=== PATIENT | male | born 1930 | race Caucasian/White ===

== ENCOUNTER 2018-06-11 08:08 | Emergency (ER) | payer MEDICARE, OTHER ==
[2018-06-11 08:23] VITALS: BP 131/61
--- NOTE | 2018-06-11 08:33 | UC ---
Ear Complaint HPI - HPI Summary HPI Summary: 3 DAYS OF DECREASED HEARING OUT OF RIGHT EAR. NO FEVER OR URI SX. WENT TO [facility] AND WAS TOLD HE HAD CERUMEN BUILD UP BUT THEY WERE UNABLE TO REMOVE IT. - History of Current Complaint Chief Complaint: UCEar Stated Complaint: DIFFICULTY HEARING Time Seen by Provider: 06/11/18 08:26 Hx Obtained From: Patient Onset/Duration: Gradual Onset, Lasting Days, Still Present Severity Initially: Moderate Severity Currently: Moderate Pain Intensity: 0 Pain Scale Used: 0-10 Numeric Aggravating Factors: Nothing Alleviating Factors: Nothing Associated Signs/Symptoms: Positive: Hearing Loss. Negative: Discharge, URI Symptoms - Allergies/Home Medications Allergies/Adverse Reactions: Allergies Allergy/AdvReac Type Severity Reaction Status Date / Time No Known Allergies Allergy Verified 06/11/18 08:23 Home Medications: Home Medications Aspirin 325 mg PO DAILY WITH MEAL 06/11/18 [History Confirmed 06/11/18] Tamsulosin HCl [Flomax] 0.4 mg PO DAILY WITH MEAL 06/11/18 [History Confirmed ] glipiZIDE [Glipizide] 5 mg PO DAILY WITH MEAL 06/11/18 [History Confirmed ] PMH/Surg Hx/FS Hx/Imm Hx Endocrine History: Diabetes Cardiovascular History: Cardiac Disease - Surgical History Surgical History: Yes Surgery Procedure, Year, and Place: stents - Family History Known Family History: Negative: Hypertension - Social History Alcohol Use: Rare Substance Use Type: None Smoking Status (MU): Former Smoker When Did the Patient Quit Smoking/Using Tobacco: 10 years Review of Systems Constitutional: Negative ENT: Other - HEARING LOSS RIGHT EAR Respiratory: Negative Cardiovascular: Negative Gastrointestinal: Negative All Other Systems Reviewed And Are Negative: Yes Physical Exam Triage Information Reviewed: Yes Appearance: Well-Appearing, No Pain Distress, Well-Nourished Vital Signs: Initial Vital Signs Temp 97.9 F 06/11/18 08:17 Pulse 87 06/11/18 08:17 Resp 20 06/11/18 08:17 BP 131/61 06/11/18 08:17 Pulse Ox 96 06/11/18 08:17 Vital Signs Reviewed: Yes Eyes: Positive: Conjunctiva Clear ENT: Positive: TMs normal, Other - BILATERAL EAC WITH CERUMEN IMPACTION Neck: Positive: Supple Respiratory: Positive: No respiratory distress, No accessory muscle use Cardiovascular: Positive: Pulses Normal Abdomen Description: Positive: Soft Musculoskeletal: Positive: No Edema Neurological: Positive: Alert Psychological: Positive: Age Appropriate Behavior Skin: Negative: rashes Ear Complaint Course/Dx - Course Course Of Treatment: BILATERAL EAC IRRIGATED SUCCESSFULLY BY RN. TMs CLEAR. PT STATES HIS HEARING IS RESTORED. - Differential Dx/Diagnosis Provider Diagnoses: BILATERAL CERUMEN IMPACTION Discharge - Sign-Out/Discharge Documenting (check all that apply): Patient Departure All imaging exams completed and their final reports reviewed: No Studies - Discharge Plan Condition: Stable Disposition: HOME Patient Education Materials: Cerumen Impaction (ED) Referrals: Kendall Pastrana MD [Primary Care Provider] - If Needed Additional Instructions: NOW THAT YOUR EAR CANALS ARE CLEAR OF WAX YOU MAY USE A QTIP TO GENTLY AND CAREFULLY CLEAN YOUR EARS ONCE OR TWICE A WEEK TO KEEP WAX FROM BUILDING UP. DO NOT INSERT THE QTIP ANY FURTHER THAN THE DEPTH OF THE [place] [facility]. CONSIDER ENT EVALUATION FOR YOUR HEARING LOSS. [facility] IN [place] EROS [facility]IN AND [address] [facility] [phone] - Billing Disposition and Condition Condition: STABLE Disposition: Home
== END 2018-06-11 09:13 | disposition home or self-care (01) ==
LOC: UCEAST 08:08
DX: H61.23 Impacted cerumen, bilateral (principal); E11.21 Type 2 diabetes mellitus with diabetic nephropathy; Z79.84 Long term (current) use of oral hypoglycemic drugs; I25.10 Atherosclerotic heart disease of native coronary artery without angina pectoris; Z79.82 Long term (current) use of aspirin; Z87.891 Personal history of nicotine dependence
CPT/HCPCS: 99213; G0463

== ENCOUNTER 2018-07-26 11:31 | Inpatient (IN) | payer MEDICARE ==
[2018-07-26] MEDS ORDERED: NS 0.9% 1000 ML* 1,000 ML IV ONE ×2 (12:24→12:35)
--- NOTE | 2018-07-26 12:27 | ED ---
HPI Chest Pain - HPI Summary HPI Summary: An 87 y/o male brought in by [facility] ambulance presents to [facility] with a chief complaint of chest pain since 07/25/18. The patient claims that he is not currently having CP and rates his pain as 0/10 but states that his chest pain was continuous. He was given 4 NTG in the ambulance and took NTG at home prior to the ambulance but does not believe his CP was relieved because of NTG. He also c/o abd pain and productive cough. He has a Hx of HI and has had "4-5 stents". He denies a Hx of DM, HTN or blood clots in lungs or legs. He also suffered from urinary incontinence the night of 06/2918. He reports not wearing O2 at home. - History of Current Complaint Chief Complaint: EDChestPainROMI Time Seen by Provider: 07/26/18 11:58 Hx Obtained From: Patient, Family/Cuff Turner, EMS Onset/Duration: Started Hours Ago, Resolved Timing: Constant Initial Severity: Moderate Current Severity: Mild Pain Intensity: 0 Pain Scale Used: 0-10 Numeric Chest Pain Location: Diffuse Chest Pain Radiates: No - Allergy/Home Medications Allergies/Adverse Reactions: Allergies Allergy/AdvReac Type Severity Reaction Status Date / Time No Known Allergies Allergy Verified 06/11/18 08:23 Home Medications: Home Medications Aspirin [Ecotrin] 325 - 650 mg PO Q4HR PRN 07/26/18 [History Confirmed 07/26/18] Cyanocobalamin TAB* [Vitamin B12 TAB*] 1,000 mcg PO DAILY 07/26/18 [History Confirmed 07/26/18] Folic Acid TAB* [Folvite TAB*] 1 mg PO DAILY 07/26/18 [History Confirmed ] Lisinopril TAB* [Prinivil TAB*] 5 mg PO DAILY 07/26/18 [History Confirmed ] Nitroglycerin TAB 0.4 MG* 0.4 mg SL Q5M PRN 07/26/18 [History Confirmed 07/26/18 ] Pravastatin (NF) [Pravachol (NF)] 40 mg PO BEDTIME 07/26/18 [History Confirmed 07/26/18] Tamsulosin CAP* [Flomax CAP*] 0.8 mg PO DAILY 07/26/18 [History Confirmed ] glipiZIDE TAB* [Glucotrol TAB*] 5 mg PO QAM 07/26/18 [History Confirmed 07/26/18 ] guaiFENesin [Mucus Relief] 400 mg PO QID PRN 07/26/18 [History Confirmed ] PMH/Surg Hx/FS Hx/Imm Hx Endocrine/Hematology History: 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 Denies: Hx Thyroid Disease Cardiovascular History: Denies: Hx Hypertension Respiratory History: Denies: Hx Asthma GI History: Denies: Hx Ulcer - Surgical History Surgery Procedure, Year, and Place: stents Infectious Disease History: No Infectious Disease History: Denies: Hx Hepatitis, Hx Human Immunodeficiency Virus (HIV), Traveled Outside the [place] in Last 30 Days - Family History Known Family History: Negative: Hypertension - Social History Alcohol Use: Rare Substance Use Type: Reports: None Hx Tobacco Use: Yes Smoking Status (MU): Former Smoker Review of Systems Cardiovascular: Negative - blood clots in lungs or legs Positive: Chest Pain Positive: Abdominal Pain Positive: incontinence All Other Systems Reviewed And Are Negative: Yes Physical Exam - Summary Physical Exam Summary: GENERAL: Patient is a well-developed and nourished F who is lying comfortable in the stretcher. Patient is not in any acute respiratory distress. HEAD AND FACE: Normocephalic EYES: PERRLA, EOMI x 2. EARS: Hearing grossly intact. MOUTH: Oropharynx within normal limits. NECK: Supple, trachea is midline, no adenopathy, no JVD, no carotid bruit. CHEST: Symmetric, no tenderness at palpation LUNGS: Wheezing in left anterior, decreased breath sounds in bases bilaterally. CVS: Regular rate and rhythm, S1 and S2 present, no murmurs or gallops appreciated. ABDOMEN: Soft, non-tender. Bowel sounds are normal. No abdominal abnormal pulsations. EXTREMITIES: Full ROM in all major joints, no edema, no cyanosis or clubbing. NEURO: Alert and oriented x 3. No acute neurological deficits. Speech is normal and follows commands. SKIN: Dry and warm Triage Information Reviewed: Yes Vital Signs On Initial Exam: Initial Vitals Temp Pulse Resp BP Pulse Ox 101.6 F 103 17 112/51 96 07/26/18 11:54 07/26/18 11:54 07/26/18 11:54 07/26/18 11:54 11/30/18 11:54 Vital Signs Reviewed: Yes Diagnostics - Vital Signs Vital Signs Temp Pulse Resp BP Pulse Ox 07/26/18 11:54 101.6 F 103 17 112/51 96 - Laboratory Result Diagrams: 07/27/18 06:01 07/27/18 06:01 Lab Statement: Any lab studies that have been ordered have been reviewed, and results considered in the medical decision making process. - Radiology CXR Radiology Interpretation Completed By: Radiologist Summary of Radiographic Findings: LEFT MIDLUNG CONSOLIDATION. RECOMMEND FOLLOW- UP UNTIL RESOLUTION TO EXCLUDE. UNDERLYING PULMONARY PARENCHYMAL PATHOLOGY. IF THE CLINICAL PRESENTATION IS NOT CONSISTENT. WITH PNEUMONIA, CONSIDER FURTHER EVALUATION WITH CT OF THE CHEST. ED physician has reviewed this imaging report. - EKG 12:24 Cardiac Rate: Tachycardia - 101 bpm EKG Rhythm: Sinus Tachycardia Summary of EKG Findings: sinus arrhythmia, some flattening of T-waves in lateral leads. Re-Evaluation - Re-Evaluation First Eval Re-Evaluation Time: 13:35 Change: Unchanged Comment: Convinced patient for admission Chest Pain Course/Dx - Course Course Of Treatment: An 87 y/o male brought in by [facility] ambulance presents to [facility] with a chief complaint of chest pain since 07/25/18. Workup is remarkable. Patient will be admitted. CXR impression: LEFT MIDLUNG CONSOLIDATION. RECOMMEND FOLLOW-UP UNTIL RESOLUTION TO EXCLUDE. UNDERLYING PULMONARY PARENCHYMAL PATHOLOGY. IF THE CLINICAL PRESENTATION IS NOT CONSISTENT. WITH PNEUMONIA, CONSIDER FURTHER EVALUATION WITH CT OF THE CHEST. Dx: PNA, acute kidney injury. Rule out ACS. Case discussed with hospitalist. I discussed results with patient. The patient agrees with this plan. - Diagnoses Provider Diagnoses: PNA (pneumonia), Acute kidney injury - Provider Notifications Discussed Care Of Patient With: Delaney Iverson Time Discussed With Above Provider: 13:45 Instructed by Provider To: Admit As Inpatient Discharge - Sign-Out/Discharge Documenting (check all that apply): Patient Departure - Admit - Discharge Plan Condition: Fair Disposition: ADMITTED TO [facility] - Billing Disposition and Condition Condition: FAIR Disposition: Admitted to [facility] - Attestation Statements Document Initiated by Scribe: Yes Documenting Scribe: Nick Bell Provider For Whom Scribe is Documenting (Include Credential): MD Willow Melloibbradford Attestation: Nick Valdovinos, scribed for Cristopher Ford MD on 07/28/18 at 0156. Scribe Documentation Reviewed: Yes Provider Attestation: The documentation as recorded by the scribe, Nick Bell accurately reflects the service I personally performed and the decisions made by me, Susanne Ford MD Status of Scribe Document: Viewed
[2018-07-26] MEDS ORDERED: Acetaminophen TAB* 325 MG PO ONE (12:34)
[2018-07-26] MEDS ORDERED: cefTRIAXone(*) 1 GM in NS 0.9% 50 ML* 50 ML IVPB ONE (12:56)
[2018-07-26] MEDS ORDERED: Azithromycin IV(*) 500 MG in NS 0.9% 250 ML* 250 ML IVPB ONE (12:56)
[2018-07-26 13:05] LABS: ABS Basophils 0 10^3/ul (0-0.2); ABS Eosinophils 0 10^3/ul (0-0.6); ABS Lymphocytes 0.9 10^3/ul (1.0-4.8); ABS Monocytes 1.2 10^3/ul (0-0.8); ABS Neutrophils 11.1 10^3/ul (1.5-7.7); ABS Nucleated RBC 0 10^3/ul; Eosinophil % 0 %; Hematocrit 35 % (42-52); Hemoglobin 11.7 g/dl (14.0-18.0); Lymphocyte % 6.9 %; Mean Corpuscular HGB Conc 34 g/dl (31-36); Mean Corpuscular Hemoglobin 31 pg (27-31); Mean Corpuscular Volume 92 fL (80-94); Mean Platelet Volume 6.9 fL (7.4-10.4); Nucleated Red Blood Cells % 0; Platelet Count 288 10^3/ul (150-450); Red Blood Count 3.76 10^6/ul (4.00-5.40); Red Cell Distribution Width 14 % (10.5-15); White Blood Count 13.3 10^3/ul (3.5-10.8)
[2018-07-26 13:16] LABS: INR 1.16 (0.77-1.02)
[2018-07-26 13:22] LABS: EGFR Non-African American 33.2 (>60)
[2018-07-26] MEDS ORDERED: Magnesium Sulfate 2 GM IV* 2 GM/50 ML BAG IVPB ONE (14:32)
[2018-07-26] MEDS ORDERED: Albuterol 2.5 MG/3 ML NEB.SOL* (0.083%) INH PRN (15:01)
[2018-07-26] MEDS ORDERED: Acetaminophen TAB* 325 MG PO PRN (15:01)
[2018-07-26] MEDS ORDERED: Al Hydrox/Mg Hydrox/Simet LIQ* 30 ML UDC PO PRN (15:01)
[2018-07-26] MEDS ORDERED: guaiFENesin LIQ* 100 MG/5 ML UDC PO PRN (15:06)
[2018-07-26] MEDS ORDERED: Nitroglycerin TAB 0.4 MG* 0.4 MG TAB SL PRN (15:06)
[2018-07-26] MEDS ORDERED: Dextrose 50% Syringe 50 ML* 25 GM/50 ML SYRINGE IV PUSH PRN (15:53)
[2018-07-26] MEDS: Insulin LISPRO* 1 UNITS UNIT SUBCUT SCH (18:09)
[2018-07-26] MEDS ORDERED: Furosemide IV* 10 MG/ML 2 ML VIAL (20 MG) IV STA (18:16)
--- NOTE | 2018-07-26 20:43 | HP ---
CC: Dr. Pastrana.* HISTORY AND PHYSICAL: DATE OF ADMISSION: 07/26/18 PROVIDER: Zehra Johnson NP PRIMARY CARE PROVIDER: Dr. Kendall Pastrana. ATTENDING PHYSICIAN WHILE IN THE HOSPITAL: Dr. Delaney Iverson * (dictated by Zehra Johnson NP). CHIEF COMPLAINT: 1. Chest pain. 2. Fever. HISTORY OF PRESENT ILLNESS: Mr. Whalen is an 87-year-old male with a past medical history significant for diabetes, hypertension, hyperlipidemia, NJ with cardiac stent placement, enlarged prostate, who presented to the emergency room with complaints of left-sided chest pain that started yesterday. The patient reports that he had chest pain all night and continued today, so he presented to the emergency room for further evaluation. The patient also reports that he has had fevers yesterday, but did not check his temperature. He does report that he has a chronic cough and has been taking guaifenesin for his cough. He reports that he has had this cough for some time. He states this morning the chest pain remained on the left side. It was sharp. He denied any nausea, vomiting, or diaphoresis with the chest pain. He does report a decreased appetite x2 days. He says since being in the emergency room the chest pain has resolved. He also reports that he had some abdominal pain this morning as well in the mid abdomen that has also resolved. He does report urinary incontinence and frequency, but denies any burning with urination or hematuria. He denies any swelling. Denies any focal weakness or sensory loss. Denies any dysphagia. Denies any arthralgias or myalgias. No rashes or lesions. Denies any anxiety or depression. While in the emergency room, the patient had routine lab work drawn. He had an elevated troponin at 0.12. He was found to have leukocytosis with WBCs of 13.3. He had a chest x-ray, left mid lung consolidation, which is felt to be pneumonia. Given his fever, leukocytosis, tachycardia, hypotension, we were asked to see and evaluate the patient for admission. PAST MEDICAL HISTORY: Significant for: 1. Diabetes. 2. Hypertension. 3. Hyperlipidemia. 4. History of an NJ with 4 cardiac stent placement. 5. Enlarged prostate. PAST SURGICAL HISTORY: Cardiac stents. HOME MEDICATIONS: 1. Nitroglycerin 0.4 mg sublingual q.5 minutes as needed. 2. Folic acid 1 mg p.o. daily. 3. Pravastatin 40 mg p.o. at bedtime. 4. Vitamin B12 1000 mcg p.o. daily. 5. Glipizide 5 mg p.o. q.a.m. 6. Tamsulosin 0.8 mg p.o. daily. 7. Aspirin 325 to 650 mg p.o. q.4 hours as needed. 8. Guaifenesin 400 mg p.o. 4 times daily p.r.n. cough. 9. Lisinopril 5 mg p.o. daily. ALLERGIES: No known drug allergies. FAMILY HISTORY: No reported history of coronary artery disease or diabetes within the family. He had 2 brothers with cancer, unknown type. SOCIAL HISTORY: The patient reports that he quit smoking cigarettes approximately 18 years ago. Does report occasional alcohol use. Denies any illicit drug use. He is retired. He lives alone. He is . Surrogate decision maker in the event he is unable to make his own decisions is his son, Hari. His number is [phone]. The patient wishes to be a DNR/DNI. The MOLST form has been completed and placed on the chart. REVIEW OF SYSTEMS: The patient is febrile with a T-max of 101.6. He does report chest pain that was left-sided that started yesterday, has now resolved since being in the emergency room. He denies any edema. Does report decreased appetite x2 days. Reports a chronic cough, no worse than normal. Denies any hemoptysis. Denies shortness of breath, nocturnal dyspnea, or orthopnea. Denies any nausea, vomiting, or diarrhea. He did report some mid abdominal pain that since has resolved. Denies any gross hematuria or dysuria. No focal weakness or sensory loss. Denies any visual complaints, dysphagia. Denies any arthralgias or myalgias. No rashes or lesions. No psychosis or anxiety. The patient does report that he was incontinent of urine and has increased urinary frequency. PHYSICAL EXAMINATION GENERAL: At this time, Mr. Whalen is sitting on the stretcher in the emergency room. He is alert and oriented. He does not appear to be in any acute distress. VITAL SIGNS: Temperature is 99.9, heart rate is 95, respirations are 20, O2 saturation is 93% on 2 L, blood pressure 107/49. HEENT: Head is atraumatic, normocephalic. Eyes: EOMs are intact. Sclerae anicteric and not pale. Oral mucosa appeared to be moist. NECK: Supple. LUNGS: Diminished bilaterally. No wheezes. A few scattered rhonchi. CARDIAC: S1, S2. Regular rate and rhythm. No murmurs, rubs, or gallops. ABDOMEN: Soft and nontender. Bowel sounds are present x4. EXTREMITIES: Pulses are +2 bilaterally. There is no edema. He is able to move all 4 extremities with 5/5 strength. NEUROLOGIC: He is awake, alert, and oriented x3. Speech is clear. Thought process is intact. There are no gross focal deficits. SKIN: Intact. DIAGNOSTIC STUDIES/LAB DATA: WBCs were 13.3, RBCs 3.76, hemoglobin 11.7, hematocrit 35, platelet count 288, neutrophils were 83.7, lymphs were 6.9, absolute neutrophils were 11.1. INR was 1.16, APTT was 30.4. Sodium 135, potassium 4.7, chloride 103, carbon dioxide was 26, anion gap was 6, BUN was 32 , creatinine 1.93, glucose was 183, lactic acid was 1.1, calcium 9.4, magnesium 1.7. T-bili 1.10, ASTs were 12, ALTs were 11, alkaline phosphatase 101. Troponin was 0.12, BNP was 385. He had a flu A and B, which were negative. He had a chest x-ray. Radiologist's impression: Left mid lung consolidation, recommend followup until resolution to exclude underlying pulmonary parenchymal pathology. If the clinical presentation is not consistent pneumonia, consider further evaluation with a CT of the chest. He had an EKG that showed sinus rhythm with PACs at a rate of 101. ASSESSMENT AND PLAN: Mr. Whalen is an 87-year-old male, who presented to the emergency room today with complaints of left-sided chest pain. He was evaluated and found to have pneumonia, meeting sepsis criteria. We were asked to evaluate him for admission. He will be admitted inpatient for: 1. Sepsis. He meets sepsis criteria with fever, tachycardia, hypotension, leukocytosis, acute kidney injury with known source of infection, pneumonia. He did receive 2 L of IV fluids in the emergency room. He does have an elevated BNP. He did receive azithromycin and ceftriaxone in the emergency room. His blood cultures are pending. UA has been ordered and pending. A urine for Legionella and S. pneumoniae is pending. His lactic acid was negative. We will continue to monitor him and treat with IV antibiotics. 2. Pneumonia. I will continue azithromycin and ceftriaxone. We will provide oxygen support as needed. Blood cultures are currently pending. Urine for Legionella and Strep pneumoniae currently pending. A sputum culture has been ordered. 3. Elevated troponin. The patient did have chest pain. This started last p.m. It has since subsided with IV hydration and aspirin and 1 nitro. We will continue to trend his troponins. His initial troponin was 0.12. The patient did receive aspirin 324 in the ambulance. He is already on statin therapy. We will continue his statin therapy. The patient at this time does not want any further evaluation of his elevated troponin. He does not want a stress test if that would be needed. I suspect that his elevation in troponin could be related to demand ischemia given his underlying pneumonia, but given his history of coronary artery disease with stent placement, acute coronary syndrome is also within the differential. He does have flat T waves in v5 and v6 and q waves on his current EKG which showed sinus rhythm with PACs. There is no old EKG to compare, will repeat Ekg in the AM or with further episodes of chest pain. I will hold on beta satya at this time do to sepsis. Will continue to monitor on telemetry. 4. Acute kidney injury. The patient has an elevated BUN and creatinine at 32 and 1.93. I suspect this could be related to dehydration as the patient has had poor p.o. intake for 2 days. He received IV hydration in the emergency room. We will repeat a BMP in the a.m. and continue to monitor this. 5. Hypomagnesemia. The patient's magnesium was 1.7 on arrival. I ordered magnesium 2 g IV. We will repeat a mag level in the a.m. 6. Hypertension. The patient is currently on lisinopril. I am going to hold his lisinopril due to his acute kidney injury. We will monitor his blood pressure and treat as needed. 7. Hyperlipidemia. We will continue on his statin therapy as previous prescribed. 8. Diabetes. I will do Accu-Cheks a.c. with lispro sliding scale. I am going to hold his glipizide at this time. 9. FEN: He can have heart-healthy, decaf okay diet. 10. Code status: He is a DNR/DNI. MOLST completed 11. DVT prophylaxis: I will place him on heparin subcu. 12. Disposition: He will be placed inpatient on telemetry. TIME SPENT: Time spent on this admission was greater than 60 minutes, half that time was spent feuv-in-erao with the patient and his family obtaining my history and physical, the other half of the time was spent going over my plan of care and implementing my plan of care. I have discussed this with my attending, Dr. Delaney Iverson, and she is in agreement with my plan. ZEHRA JOHNSON, VISION CARE ASSOCIATE [id number]/CPS #: [id number] PEPPER
[2018-07-26] MEDS: Atorvastatin* 10 MG TAB PO SCH (21:05)
[2018-07-26] MEDS: Heparin VIAL(*) 5000 UNITS/ML VIAL (FIVE THOUSAND) SUBCUT SCH (21:05)
[2018-07-27 02:13] LABS: Urine Appearance Cloudy; Urine Blood 2+ (Negative); Urine Color Yellow; Urine Ketones Trace (Negative); Urine Protein Negative (Negative); Urine Red Blood Cell 2+(6-10/hpf) (Absent); Urine Specific Gravity 1.014 (1.010-1.030); Urine Urobilinogen Negative (Negative); Urine White Blood Cell 2+(11-20/hpf) (Absent)
[2018-07-27] MEDS: Heparin VIAL(*) 5000 UNITS/ML VIAL (FIVE THOUSAND) SUBCUT SCH ×3 (05:50→20:50)
[2018-07-27 06:15] LABS: ABS Basophils 0 10^3/ul (0-0.2); ABS Eosinophils 0 10^3/ul (0-0.6); ABS Monocytes 1.1 10^3/ul (0-0.8); ABS Neutrophils 10.3 10^3/ul (1.5-7.7); ABS Nucleated RBC 0 10^3/ul; Eosinophil % 0 %; Hematocrit 33 % (42-52); Hemoglobin 10.9 g/dl (14.0-18.0); Lymphocyte % 8.3 %; Mean Corpuscular HGB Conc 33 g/dl (31-36); Mean Corpuscular Hemoglobin 31 pg (27-31); Mean Corpuscular Volume 92 fL (80-94); Mean Platelet Volume 6.8 fL (7.4-10.4); Nucleated Red Blood Cells % 0.3; Platelet Count 282 10^3/ul (150-450); Red Blood Count 3.56 10^6/ul (4.00-5.40); Red Cell Distribution Width 14 % (10.5-15); White Blood Count 12.6 10^3/ul (3.5-10.8)
[2018-07-27 06:35] LABS: EGFR Non-African American 36.9 (>60)
[2018-07-27] MEDS: Insulin LISPRO* 1 UNITS UNIT SUBCUT SCH ×3 (09:09→17:25)
[2018-07-27] MEDS: Aspirin EC TAB* 81 MG TAB.EC PO SCH (09:37)
[2018-07-27] MEDS: Tamsulosin CAP* 0.4 MG PO SCH (09:37)
[2018-07-27] MEDS: Folic Acid TAB* 1 MG PO SCH (09:38)
[2018-07-27] MEDS: Cyanocobalamin TAB* 500 MCG PO SCH (09:38)
[2018-07-27] MEDS: cefTRIAXone(*) 1 GM in NS 0.9% 50 ML* 50 ML IVPB SCH (14:59)
[2018-07-27] MEDS ORDERED: Azithromycin IV(*) 500 MG in NS 0.9% 250 ML* 250 ML IVPB SCH (16:00)
--- NOTE | 2018-07-27 17:08 | PN ---
Subjective Date of Service: 07/27/18 Interval History: Pt attest to chronic PATEL and chest pains likely angina related but says he is 87 yo and still wants to limit/refuse any additional cardiac workup such as a stress test. 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 Says an exercise stress test after his [address] Parekh was somewhat traumatic. Even explaining nuclear stress or ECHO would be less invasive he refuses. Walks 200 yds to his mail box and back without having to stop. Sees Dr. Pastrana every 6 months. Thinks he may have mentioned some degree of kidney disease. Still on 4L Tmax 100.0 this AM Sees no specialist Objective Active Medications: Acetaminophen (Tylenol Tab*) 650 mg PO Q4H PRN PRN Reason: FEVER/PAIN Al Hydrox/Mg Hydrox/Simethicone (Maalox Plus*) 30 ml PO Q6H PRN PRN Reason: INDIGESTION Albuterol (Ventolin 2.5 Mg/3 Ml Neb.Юлия*) 2.5 mg INH [id number] AWAKE PRN PRN Reason: sob/wheezing Aspirin (Aspirin Ec Tab*) 81 mg PO DAILY [facility] Last Admin: 07/27/18 09:37 Dose: 81 mg Atorvastatin Calcium (Lipitor*) 10 mg PO BEDTIME [facility]; Protocol Last Admin: 07/26/18 21:05 Dose: 10 mg Cyanocobalamin (Vitamin B12 Tab*) 1,000 mcg PO DAILY [facility] Last Admin: 07/27/18 09:38 Dose: 1,000 mcg Dextrose (D50w Syringe 50 Ml*) 12.5 gm IV PUSH .FOR FS < 60 - SS PRN PRN Reason: FS < 60 Folic Acid (Folvite Tab*) 1 mg PO DAILY [facility] Last Admin: 07/27/18 09:38 Dose: 1 mg Guaifenesin (Robitussin*) 20 ml PO QID PRN PRN Reason: CONGESTION Heparin Sodium (Porcine) (Heparin Vial(*)) 5,000 units SUBCUT Q8HR [facility] Last Admin: 07/27/18 14:59 Dose: 5,000 units Ceftriaxone Sodium 1 gm/ (Sodium Chloride) 50 mls @ 200 mls/hr IVPB Q24H [facility] Last Admin: 07/27/18 14:59 Dose: 200 mls/hr Azithromycin 500 mg/ Sodium (Chloride) 250 mls @ 250 mls/hr IVPB Q24H [facility] Last Admin: 07/27/18 16:27 Dose: 250 mls/hr Insulin Human Lispro (Humalog*) 0 units SUBCUT AC [facility]; Protocol Last Admin: 07/27/18 14:13 Dose: Not Given Nitroglycerin (Nitroglycerin Tab 0.4 Mg*) 0.4 mg SL Q5M PRN PRN Reason: PAIN - CHEST Tamsulosin HCl (Flomax Cap*) 0.8 mg PO DAILY [facility] Last Admin: 07/27/18 09:37 Dose: 0.8 mg Vital Signs - 8 hr 07/27/18 07/27/18 11:21 16:13 Temperature 100.0 F 98.6 F Pulse Rate 105 104 Respiratory 22 20 Rate Blood Pressure 133/70 122/49 (mmHg) O2 Sat by Pulse 95 100 Oximetry Oxygen Devices in Use Now: Nasal Cannula Appearance: NAD Eyes: No Scleral Icterus, PERRLA Ears/Nose/Mouth/Throat: NL Teeth, Lips, Gums, Mucous Membranes Moist Neck: NL Appearance and Movements; NL JVP Respiratory: - - rhonchi in left mid lung field, no wheezing or rales. Cardiovascular: - - holosystolic murmur 2/6 loudest at LLSB, regular rate, no rubs or gallops Extremities: No Edema Skin: No Rash or Ulcers, No Nodules or Sclerosis Neurological: Alert and Oriented x 3, NL Sensation, NL Muscle Strength and Tone Nutrition: Taking PO's Result Diagrams: 07/27/18 06:01 07/27/18 06:01 Additional Lab and Data: Laboratory Results - last 24 hr 07/26/18 07/27/18 07/27/18 18:50 01:55 06:01 WBC 12.6 H RBC 3.56 L Hgb 10.9 L Hct 33 L MCV 92 MCH 31 MCHC 33 RDW 14 Plt Count 282 MPV 6.8 L Neut % (Auto) 82.2 Lymph % (Auto) 8.3 Richardson % (Auto) 9.1 Eos % (Auto) 0 Baso % (Auto) 0.4 Absolute Neuts (auto) 10.3 H Absolute Lymphs (auto) 1.0 Absolute Monos (auto) 1.1 H Absolute Eos (auto) 0 Absolute Basos (auto) 0 Absolute Nucleated RBC 0 Nucleated RBC % 0.3 Sodium Potassium Chloride Carbon Dioxide Anion Gap BUN Creatinine Est GFR ( Amer) Est GFR (Non-Af Amer) BUN/Creatinine Ratio Glucose POC Glucose (mg/dL) Calcium Magnesium Troponin I 0.09 H* Triglycerides Cholesterol LDL Cholesterol HDL Cholesterol Urine Color Yellow Urine Appearance Cloudy Urine pH 5.0 Ur Specific [place] 1.014 Urine Protein Negative Urine Ketones Trace A Urine Blood 2+ A Urine Nitrate Negative Urine Bilirubin Negative Urine Urobilinogen Negative Ur Leukocyte Esterase Trace A Urine WBC (Auto) 2+(11-20/hpf) A Urine RBC (Auto) 2+(6-10/hpf) A Ur Squamous Epith Cells Present A Urine Bacteria Absent Urine Glucose Negative Urine Ascorbic Acid * A 07/27/18 07/27/18 07/27/18 06:01 07:28 11:35 WBC RBC Hgb Hct MCV MCH MCHC RDW Plt Count MPV Neut % (Auto) Lymph % (Auto) Richardson % (Auto) Eos % (Auto) Baso % (Auto) Absolute Neuts (auto) Absolute Lymphs (auto) Absolute Monos (auto) Absolute Eos (auto) Absolute Basos (auto) Absolute Nucleated RBC Nucleated RBC % Sodium 135 Potassium 4.7 Chloride 104 Carbon Dioxide 23 Anion Gap 8 BUN 33 H Creatinine 1.76 H Est GFR ( Amer) 44.6 Est GFR (Non-Af Amer) 36.9 BUN/Creatinine Ratio 18.8 Glucose 179 H POC Glucose (mg/dL) 172 H 202 H Calcium 8.8 Magnesium 2.0 Troponin I Triglycerides 138 Cholesterol 132 LDL Cholesterol 71 HDL Cholesterol 33.4 Urine Color Urine Appearance Urine pH Ur Specific [place] Urine Protein Urine Ketones Urine Blood Urine Nitrate Urine Bilirubin Urine Urobilinogen Ur Leukocyte Esterase Urine WBC (Auto) Urine RBC (Auto) Ur Squamous Epith Cells Urine Bacteria Urine Glucose Urine Ascorbic Acid 07/27/18 16:32 WBC RBC Hgb Hct MCV MCH MCHC RDW Plt Count MPV Neut % (Auto) Lymph % (Auto) Richardson % (Auto) Eos % (Auto) Baso % (Auto) Absolute Neuts (auto) Absolute Lymphs (auto) Absolute Monos (auto) Absolute Eos (auto) Absolute Basos (auto) Absolute Nucleated RBC Nucleated RBC % Sodium Potassium Chloride Carbon Dioxide Anion Gap BUN Creatinine Est GFR ( Amer) Est GFR (Non-Af Amer) BUN/Creatinine Ratio Glucose POC Glucose (mg/dL) 205 H Calcium Magnesium Troponin I Triglycerides Cholesterol LDL Cholesterol HDL Cholesterol Urine Color Urine Appearance Urine pH Ur Specific [place] Urine Protein Urine Ketones Urine Blood Urine Nitrate Urine Bilirubin Urine Urobilinogen Ur Leukocyte Esterase Urine WBC (Auto) Urine RBC (Auto) Ur Squamous Epith Cells Urine Bacteria Urine Glucose Urine Ascorbic Acid Microbiology and Other Data: Microbiology 07/26/18 12:45 Blood Venous Aerobic Blood Culture - Preliminary No Growth Day 1 07/26/18 12:45 Blood Venous Anaerobic Blood Culture - Preliminary No Growth Day 1 07/27/18 01:55 Urine Legionella Urinary Antigen - Final Negative Legionella Antigen 07/27/18 01:55 Urine Streptococcus pneumoniae Ag Screen - Final Negative S. pneumo Antigen 07/26/18 13:03 Nasal Influenza Types A,B Antigen - Final Specimen received for Influenza A/B Molecular testing Assess/Plan/Problems-Billing Assessment: 87 yo male PMH CAD with 4 stents with 2002 [facility] documenting subtotal LAD occlusion, NIDDM, HTHN, HLD with chronic PATEL and exertional chest pain but refusing additional cardiac workup presenting with left chest pain and suprapubic pain. left midlung consolidation, fever, leukocytosis, tachycardia, tachypnea suspicious for sepsis secondary to pneumonia. Acute hypoxic respiratory failure. CFTX, azithromycin. - Patient Problems (1) Sepsis Current Visit: Yes Status: Acute Comment: fever, tachycardia, leukocytosis, tachpynea, acute hypoxic respiratory failure secondary to left middle lobe pneumonia. fever curve, HR, RR improving, still with significant oxygen requirement. (2) Pneumonia Current Visit: Yes Status: Acute Code(s): J18.9 - PNEUMONIA, UNSPECIFIED ORGANISM SNOMED Code(s): 785093698 Comment: Continue ceftriaxone, azithromycin strep pna and legionella urine Ag negative. f/u Bcx, sputm cx flu negative. (3) CAD (coronary artery disease) Current Visit: Yes Status: Acute Code(s): I25.10 - ATHSCL HEART DISEASE OF [place] CORONARY ARTERY W/O ANG PCTRS SNOMED Code(s): 74059146 Comment: reported 4 stents continue nitro SL prn. he is not on a BB at home. will start metoprolol 12.5mg q12 for now given resolving sepsis former smoker (quit 18 years ago) refusing nuclear stress or ECHO. EKG with inferior Q wave in III and v5 ST depressions and TWI II (4) HLD (hyperlipidemia) Current Visit: Yes Status: Acute Code(s): E78.5 - HYPERLIPIDEMIA, UNSPECIFIED SNOMED Code(s): 63257534 Comment: Continue 10mg atorvastatin. (home is pravastatin 40mg) HDL 71, HDL 33 (5) Kidney disease Current Visit: Yes Status: Acute Comment: Unknown baseline, but likely degree of chronic kidney disease. 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 Plan to obtain records from Dr. Pastrana if still here on Sunday. Status and Disposition: medicine inpatient.
[2018-07-27] MEDS ORDERED: Furosemide IV* 10 MG/ML 2 ML VIAL (20 MG) IV ONE (19:04)
[2018-07-27] MEDS: Metoprolol Tartrate TAB* 25 MG PO SCH (20:50)
[2018-07-27] MEDS: Atorvastatin* 10 MG TAB PO SCH (20:50)
[2018-07-28 05:48] LABS: ABS Basophils 0 10^3/ul (0-0.2); ABS Eosinophils 0 10^3/ul (0-0.6); ABS Lymphocytes 0.7 10^3/ul (1.0-4.8); ABS Monocytes 1.1 10^3/ul (0-0.8); ABS Neutrophils 8.1 10^3/ul (1.5-7.7); ABS Nucleated RBC 0 10^3/ul; Eosinophil % 0.1 %; Hematocrit 33 % (42-52); Hemoglobin 11.1 g/dl (14.0-18.0); Lymphocyte % 7.2 %; Mean Corpuscular HGB Conc 34 g/dl (31-36); Mean Corpuscular Hemoglobin 31 pg (27-31); Mean Corpuscular Volume 92 fL (80-94); Mean Platelet Volume 6.7 fL (7.4-10.4); Nucleated Red Blood Cells % 0.1; Platelet Count 338 10^3/ul (150-450); Red Blood Count 3.61 10^6/ul (4.00-5.40); Red Cell Distribution Width 14 % (10.5-15)
[2018-07-28] MEDS: Heparin VIAL(*) 5000 UNITS/ML VIAL (FIVE THOUSAND) SUBCUT SCH ×3 (05:59→21:12)
[2018-07-28 06:08] LABS: EGFR Non-African American 39.2 (>60)
[2018-07-28] MEDS: Cyanocobalamin TAB* 500 MCG PO SCH (08:41)
[2018-07-28] MEDS: Insulin LISPRO* 1 UNITS UNIT SUBCUT SCH ×3 (08:41→17:15)
[2018-07-28] MEDS: Metoprolol Tartrate TAB* 25 MG PO SCH ×2 (08:41→21:09)
[2018-07-28] MEDS: Aspirin EC TAB* 81 MG TAB.EC PO SCH (08:42)
[2018-07-28] MEDS: Tamsulosin CAP* 0.4 MG PO SCH (08:42)
[2018-07-28] MEDS: Folic Acid TAB* 1 MG PO SCH (08:42)
[2018-07-28] MEDS ORDERED: Furosemide TAB* 40 MG PO SCH (09:00)
--- NOTE | 2018-07-28 10:23 | PN ---
Subjective Date of Service: 07/28/18 Interval History: Family at bedside, questions answered. Currently on 5L, 98% coughing still, unable to produce sputum feeling more comfortable than last night when had episode of respiratory distress, got another 20mg IV lasix. weight decreasing. ECHO okay per pt and family. Objective Active Medications: Acetaminophen (Tylenol Tab*) 650 mg PO Q4H PRN PRN Reason: FEVER/PAIN Al Hydrox/Mg Hydrox/Simethicone (Maalox Plus*) 30 ml PO Q6H PRN PRN Reason: INDIGESTION Albuterol (Ventolin 2.5 Mg/3 Ml Neb.Юлия*) 2.5 mg INH [id number] AWAKE PRN PRN Reason: sob/wheezing Aspirin (Aspirin Ec Tab*) 81 mg PO DAILY [facility] Last Admin: 07/28/18 08:42 Dose: 81 mg Atorvastatin Calcium (Lipitor*) 10 mg PO BEDTIME [facility]; Protocol Last Admin: 07/27/18 20:50 Dose: 10 mg Azithromycin (Zithromax Tab*) 500 mg PO ONCE ONE Stop: 07/28/18 17:01 Cyanocobalamin (Vitamin B12 Tab*) 1,000 mcg PO DAILY [facility] Last Admin: 07/28/18 08:41 Dose: 1,000 mcg Dextrose (D50w Syringe 50 Ml*) 12.5 gm IV PUSH .FOR FS < 60 - SS PRN PRN Reason: FS < 60 Folic Acid (Folvite Tab*) 1 mg PO DAILY [facility] Last Admin: 07/28/18 08:42 Dose: 1 mg Furosemide (Lasix Tab*) 40 mg PO DAILY [facility] Last Admin: 07/28/18 08:42 Dose: 40 mg Guaifenesin (Robitussin*) 20 ml PO QID PRN PRN Reason: CONGESTION Heparin Sodium (Porcine) (Heparin Vial(*)) 5,000 units SUBCUT Q8HR [facility] Last Admin: 07/28/18 05:59 Dose: 5,000 units Ceftriaxone Sodium 1 gm/ (Sodium Chloride) 50 mls @ 200 mls/hr IVPB Q24H [facility] Last Admin: 07/27/18 14:59 Dose: 200 mls/hr Insulin Human Lispro (Humalog*) 0 units SUBCUT AC [facility]; Protocol Last Admin: 07/28/18 08:41 Dose: 2 units Metoprolol Tartrate (Lopressor Tab*) 12.5 mg PO Q12HR [facility] Last Admin: 07/28/18 08:41 Dose: 12.5 mg Nitroglycerin (Nitroglycerin Tab 0.4 Mg*) 0.4 mg SL Q5M PRN PRN Reason: PAIN - CHEST Tamsulosin HCl (Flomax Cap*) 0.8 mg PO DAILY [facility] Last Admin: 07/28/18 08:42 Dose: 0.8 mg Vital Signs - 8 hr 07/28/18 07/28/18 07/28/18 03:28 03:30 07:32 Temperature 98.7 F Pulse Rate 101 Respiratory 20 20 20 Rate Blood Pressure 111/58 (mmHg) O2 Sat by Pulse 98 Oximetry 07/28/18 08:20 Temperature 99.0 F Pulse Rate 99 Respiratory 20 Rate Blood Pressure 110/46 (mmHg) O2 Sat by Pulse 96 Oximetry Oxygen Devices in Use Now: Nasal Cannula Appearance: NAD Eyes: No Scleral Icterus Ears/Nose/Mouth/Throat: NL Teeth, Lips, Gums Neck: NL Appearance and Movements; NL JVP Respiratory: Symmetrical Chest Expansion and Respiratory Effort - rhonchorous on left, decreased at bases. no wheezing. Cardiovascular: NL Sounds; No Murmurs; No JVD, RRR Abdominal: NL Sounds; No Tenderness; No Distention Extremities: - - trace edema Skin: No Rash or Ulcers Neurological: Alert and Oriented x 3, NL Sensation, NL Muscle Strength and Tone Nutrition: Taking PO's Result Diagrams: 07/28/18 05:26 07/28/18 05:26 Additional Lab and Data: Laboratory Results - last 24 hr 07/28/18 07/28/18 07/28/18 05:26 05:26 05:26 WBC 10.0 RBC 3.61 L Hgb 11.1 L Hct 33 L MCV 92 MCH 31 MCHC 34 RDW 14 Plt Count 338 MPV 6.7 L Neut % (Auto) 81.2 Lymph % (Auto) 7.2 [place] % (Auto) 11.3 Eos % (Auto) 0.1 Baso % (Auto) 0.2 Absolute Neuts (auto) 8.1 H Absolute Lymphs (auto) 0.7 L Absolute Monos (auto) 1.1 H Absolute Eos (auto) 0 Absolute Basos (auto) 0 Absolute Nucleated RBC 0 Nucleated RBC % 0.1 Sodium 137 Potassium 4.8 Chloride 103 Carbon Dioxide 25 Anion Gap 9 BUN 34 H Creatinine 1.67 H Est GFR ( Amer) 47.4 Est GFR (Non-Af Amer) 39.2 BUN/Creatinine Ratio 20.4 H Glucose 220 H POC Glucose (mg/dL) Hemoglobin A1c 7.1 H Calcium 8.8 07/28/18 07/28/18 07/28/18 07:12 11:09 16:14 WBC RBC Hgb Hct MCV MCH MCHC RDW Plt Count MPV Neut % (Auto) Lymph % (Auto) [place] % (Auto) Eos % (Auto) Baso % (Auto) Absolute Neuts (auto) Absolute Lymphs (auto) Absolute Monos (auto) Absolute Eos (auto) Absolute Basos (auto) Absolute Nucleated RBC Nucleated RBC % Sodium Potassium Chloride Carbon Dioxide Anion Gap BUN Creatinine Est GFR ( Amer) Est GFR (Non-Af Amer) BUN/Creatinine Ratio Glucose POC Glucose (mg/dL) 222 H 279 H 282 H Hemoglobin A1c Calcium Microbiology and Other Data: Microbiology 07/26/18 12:45 Blood Venous Aerobic Blood Culture - Preliminary No Growth Day 2 07/26/18 12:45 Blood Venous Anaerobic Blood Culture - Preliminary No Growth Day 2 07/27/18 01:55 Urine Urine Culture - Final 07/27/18 01:55 Urine Legionella Urinary Antigen - Final Negative Legionella Antigen 07/27/18 01:55 Urine Streptococcus pneumoniae Ag Screen - Final Negative S. pneumo Antigen 07/26/18 13:03 Nasal Influenza Types A,B Antigen - Final Specimen received for Influenza A/B Molecular testing Assess/Plan/Problems-Billing Assessment: 87 yo male PMH CAD with 4 stents with 2002 [facility] documenting subtotal LAD occlusion, NIDDM, HTHN, HLD with chronic PATEL and exertional chest pain but refusing additional cardiac workup presenting with left chest pain and suprapubic pain. left midlung consolidation, fever, leukocytosis, tachycardia, tachypnea suspicious for sepsis secondary to pneumonia. Acute hypoxic respiratory failure. CFTX, azithromycin. ECHO with evidence of multiple regional wall motion abnormalities and EF 30%. Still not wanting cardiac intervention though Full Code and would want return to the hospital if gets SOB again. - Patient Problems (1) Sepsis Current Visit: Yes Status: Acute Comment: fever, tachycardia, leukocytosis, tachpynea, acute hypoxic respiratory failure secondary to left middle lobe pneumonia. fever curve, HR, RR improving, still with significant oxygen requirement. (2) Pneumonia Current Visit: Yes Status: Acute Code(s): J18.9 - PNEUMONIA, UNSPECIFIED ORGANISM SNOMED Code(s): 328426265 Comment: Continue ceftriaxone, azithromycin strep pna and legionella urine Ag negative. f/u Bcx NGTD f/u sputum cx(has not been able to provide) flu negative. 2 view CXR with continue left lung consolidation, described as more pleural based. He is former smoker and will need continued imaging as outpatient to rule out parenchymal pathology. (3) CAD (coronary artery disease) Current Visit: Yes Status: Acute Code(s): I25.10 - ATHSCL HEART DISEASE OF [place] CORONARY ARTERY W/O ANG PCTRS SNOMED Code(s): 33048430 Comment: reported 4 stents (2001) continue nitro SL prn. continue (new) metoprolol 12.5mg q12 for now given resolving sepsis. titrate up as able former smoker (quit 18 years ago) refusing nuclear stress or LHC. EKG with inferior Q wave in III and anterior lateral ST depressions and TWI II. ECHO with multiple regional wall motion abnormalities. Will attempt medical management. (4) HLD (hyperlipidemia) Current Visit: Yes Status: Acute Code(s): E78.5 - HYPERLIPIDEMIA, UNSPECIFIED SNOMED Code(s): 85716150 Comment: Will increase to 80mg atorvastatin from started 10mg given suspected severe underlying CAD and confirmed DM. (home is pravastatin 40mg) HDL 71, HDL 33 (5) Kidney disease Current Visit: Yes Status: Acute Comment: Unknown baseline, but likely degree of chronic kidney disease. 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 Plan to obtain records from Dr. Pastrana if still here on Sunday. Will need urine microalbumin if none as outpatient given confirmed DM. (6) Diabetes mellitus Current Visit: Yes Status: Acute Code(s): E11.9 - TYPE 2 DIABETES MELLITUS WITHOUT COMPLICATIONS SNOMED Code(s): 42329692 Comment: A1C checked: 7.1% continue sliding scale adding lantus 8U q24 given hyperglycemic in 200s. Status and Disposition: medicine inpatient. still with significant oxygen requirement. PT ordered ( though would likely refuse placement)
[2018-07-28] MEDS: cefTRIAXone(*) 1 GM in NS 0.9% 50 ML* 50 ML IVPB SCH (13:55)
--- NOTE | 2018-07-28 15:22 | ECHO ---
Patient: JAREK CLINTON [facility] Rec#: [id number] : 1930 Date: 07/28/2018 Age: 87y Height: 168 cm / 66.1 in Weight: 81.1 kg / 178.7 lbs Sex: M BSA: 1.91 Room#: [facility] Admit Date#: 07/26/2018 Type: Inpatient Referring: Zehra Johnson Reading: Marty Tejada DO Construction Operations Manager: Loly Burks RDCS CC: Kendall Pastrana MD Transthoracic Echocardiogram Indication: Chest pain BP: 111/58 HR: 114 Rhythm: A-Fib Findings History: DM, HTN, HLD, [place], stents. Technical Comments: The study quality is fair. Completed at 1310. Left Ventricle: The left ventricular chamber size is normal. Mild concentric left ventricular hypertrophy is observed. There are multiple regional wall motion abnormalities. There is moderate to severely decreased left ventricular systolic function. at 30% The assessment of diastolic function is non-diagnostic. The basal anterior, basal inferolateral, mid anterior, mid anterolateral, mid inferior, and apical anterior wall segments are hypokinetic (score 2). The mid inferolateral, apical septal, apical lateral, and apical inferior wall segments are akinetic (score 3). The basal inferior wall segment is dyskinetic (score 4). Overall wallmotion score index is 2.21 Left Atrium: The left atrium is slightly dilated. Right Ventricle: The right ventricular chamber size and systolic function are within normal limits. Right Atrium: The right atrial cavity size is normal. Aortic Valve: The aortic valve structure is not well visualized. Moderate aortic leaflet calcification is visualized. Systolic excursion of the aortic valve cusps is reduced. There is a trace of aortic regurgitation. There is mild to moderate aortic stenosis. The mean gradient of the aortic valve is 10 mmHg. The peak instantaneous gradient of the aortic valve is 18 mmHg. The aortic valve area, by VTI's, is calculated at 1.42 cm2. Mitral Valve: There is mitral annular calcification. The mitral valve leaflets are mildly thickened. There is moderate mitral regurgitation. There is no evidence of mitral stenosis. Tricuspid Valve: The tricuspid valve leaflets are normal. There is mild tricuspid regurgitation. The right ventricular systolic pressure is estimated at 63 mmHg. There is evidence of moderate to severe pulmonary hypertension. There is no tricuspid stenosis. Pulmonic Valve: The pulmonic valve appears normal. There is a trace pulmonic regurgitation. There is no pulmonic stenosis. Pericardium: There is no significant pericardial effusion. Aorta: There is no dilatation of the ascending aorta. The aortic arch is not well visualized. The aortic root is normal in size. Pulmonary Artery: The main pulmonary artery is not well visualized. Venous: The inferior vena cava is dilated. There is a greater than 50% respiratory change in the inferior vena cava dimension. Conclusions The left ventricular chamber size is normal. Mild concentric left ventricular hypertrophy is observed. There are multiple regional wall motion abnormalities. There is moderate to severely decreased left ventricular systolic function at 30% The left atrium is slightly dilated. There is mild to moderate aortic stenosis. There is evidence of moderate to severe pulmonary hypertension. None prior for comparison at time of interpretation Measurements Name Value Normal Range RVIDd (AP) 2D 3.1 cm (0.9 - 2.6) RVDdMajor (2D) 4.8 cm (2.2 - 4.4) RAd ISD 4CH 4.9 cm (3.4 - 4.9) RA (A4C)W 4 cm (2.9 - 4.6) IVSd (2D) 1.2 cm (0.6 - 1) LVPWd (2D) 1.1 cm (0.6 - 1) LVIDd (2D) 4.6 cm (3.6 - 5.4) LVIDs (2D) 4 cm - LV FS (2D) 14 % (25 - 45) Aortic Annulus 2.4 cm (1.4 - 2.6) Ao root diameter (2D) 3.2 cm (2.1 - 3.5) Ascending Ao 3.4 cm (2.1 - 3.4) LA dimension (AP) 2D 3.7 cm (2.3 - 3.8) LAd ISD 4CH 5.3 cm (2.9 - 5.3) LA ISD 4CH W 4.2 cm (2.5 - 4.5) Name Value Normal Range LA ESV BP (A/L) index 34 ml/m2 - Name Value Normal Range MV E-wave Vmax 1 m/sec - MV deceleration time 173 msec - MV A-wave Vmax 0.8 m/sec - MV E:A ratio 1.2 ratio - LV septal e' Vmax 0.05 m/sec - LV lateral e' Vmax 0.06 m/sec - LV E:e' septal ratio 20 ratio - LV E:e' lateral ratio 17.5 ratio - Name Value Normal Range AV Vmax 2.2 m/sec - AV VTI 39 cm - AV peak gradient 18 mmHg - AV mean gradient 10 mmHg - LVOT diameter 2 cm - LVOT Vmax 1.02 m/sec - LVOT VTI 17.61 cm - LVOT peak gradient 4.18 mmHg - LVOT mean gradient 1.57 mmHg - DOI (VTI) 0.31 ratio - TAYLOR (continuity VTI) 1.42 cm2 - Name Value Normal Range MV Vmax 1.5 m/sec - MV VTI 37 cm - MV peak gradient 3 mmHg - MV mean gradient 3 mmHg - MV PHT 74 msec - MR Vmax 5.2 m/sec - MR VTI 136 cm - MR flow (PISA) 42.5 ml/sec - MR ERO 0.08 cm2 - MR PISA radius 0.3 cm - MR alias Vmax 41.9 cm/sec - MVA (PHT) 3 cm2 - Name Value Normal Range TR Vmax 3.7 m/sec - TR peak gradient 55 mmHg - RAP 8 mmHg - RVSP 63 mmHg - IVC diameter 2.5 cm - Name Value Normal Range PV Vmax 1 m/sec - PV peak gradient 4 mmHg - Wallmotion BAS Not Seen BA Hypokinetic BAL Normal ROCK Hypokinetic BI Dyskinetic BIS Normal MAS Not Seen MA Hypokinetic MAL Hypokinetic MIL Akinetic IL Hypokinetic MIS Normal Akinetic AA Hypokinetic AL Akinetic AI Akinetic APEX Akinetic
[2018-07-28] MEDS: Furosemide IV* 10 MG/ML VIAL (40 MG) IV SCH (15:37)
[2018-07-28] MEDS ORDERED: Azithromycin TAB* 250 MG PO ONE (17:00)
[2018-07-28] MEDS: Insulin GLARGINE(*) 1 UNITS UNIT SUBCUT SCH (17:16)
[2018-07-28] MEDS: Atorvastatin* 80 MG TAB PO SCH (21:12)
[2018-07-29] MEDS: Heparin VIAL(*) 5000 UNITS/ML VIAL (FIVE THOUSAND) SUBCUT SCH ×3 (05:22→20:57)
[2018-07-29 06:32] LABS: ABS Basophils 0 10^3/ul (0-0.2); ABS Eosinophils 0.1 10^3/ul (0-0.6); ABS Lymphocytes 0.8 10^3/ul (1.0-4.8); ABS Monocytes 0.8 10^3/ul (0-0.8); ABS Neutrophils 5.7 10^3/ul (1.5-7.7); ABS Nucleated RBC 0 10^3/ul; Hematocrit 33 % (42-52); Hemoglobin 11.2 g/dl (14.0-18.0); Lymphocyte % 10.2 %; Mean Corpuscular HGB Conc 34 g/dl (31-36); Mean Corpuscular Hemoglobin 31 pg (27-31); Mean Corpuscular Volume 92 fL (80-94); Mean Platelet Volume 7.3 fL (7.4-10.4); Nucleated Red Blood Cells % 0.1; Platelet Count 311 10^3/ul (150-450); Red Blood Count 3.63 10^6/ul (4.00-5.40); Red Cell Distribution Width 14 % (10.5-15); White Blood Count 7.4 10^3/ul (3.5-10.8)
[2018-07-29 06:47] LABS: EGFR Non-African American 38.6 (>60)
[2018-07-29] MEDS: Tamsulosin CAP* 0.4 MG PO SCH (08:43)
[2018-07-29] MEDS: Furosemide IV* 10 MG/ML VIAL (40 MG) IV SCH ×2 (08:44→15:42)
[2018-07-29] MEDS: Folic Acid TAB* 1 MG PO SCH (08:44)
[2018-07-29] MEDS: Insulin LISPRO* 1 UNITS UNIT SUBCUT SCH ×3 (08:44→17:26)
[2018-07-29] MEDS: Aspirin EC TAB* 81 MG TAB.EC PO SCH (08:44)
[2018-07-29] MEDS: Cyanocobalamin TAB* 500 MCG PO SCH (08:44)
[2018-07-29] MEDS: Metoprolol Tartrate TAB* 25 MG PO SCH ×2 (08:44→20:54)
[2018-07-29] MEDS: cefTRIAXone(*) 1 GM in NS 0.9% 50 ML* 50 ML IVPB SCH (13:59)
[2018-07-29] MEDS: Insulin GLARGINE(*) 1 UNITS UNIT SUBCUT SCH (17:26)
--- NOTE | 2018-07-29 17:56 | PN ---
Subjective Date of Service: 07/29/18 Interval History: Pt walked for the first time since his admission today. Feels "well" but still has significant 02 needs, occasional cough Objective Active Medications: Acetaminophen (Tylenol Tab*) 650 mg PO Q4H PRN PRN Reason: FEVER/PAIN Al Hydrox/Mg Hydrox/Simethicone (Maalox Plus*) 30 ml PO Q6H PRN PRN Reason: INDIGESTION Albuterol (Ventolin 2.5 Mg/3 Ml Neb.Юлия*) 2.5 mg INH [id number] AWAKE PRN PRN Reason: sob/wheezing Aspirin (Aspirin Ec Tab*) 81 mg PO DAILY [facility] Last Admin: 07/29/18 08:44 Dose: 81 mg Atorvastatin Calcium (Lipitor*) 80 mg PO BEDTIME [facility]; Protocol Last Admin: 07/28/18 21:12 Dose: 80 mg Cyanocobalamin (Vitamin B12 Tab*) 1,000 mcg PO DAILY [facility] Last Admin: 07/29/18 08:44 Dose: 1,000 mcg Dextrose (D50w Syringe 50 Ml*) 12.5 gm IV PUSH .FOR FS < 60 - SS PRN PRN Reason: FS < 60 Folic Acid (Folvite Tab*) 1 mg PO DAILY [facility] Last Admin: 07/29/18 08:44 Dose: 1 mg Furosemide (Lasix Iv*) 40 mg IV 0800,1500 [facility] Last Admin: 07/29/18 15:42 Dose: 40 mg Guaifenesin (Robitussin*) 20 ml PO QID PRN PRN Reason: CONGESTION Heparin Sodium (Porcine) (Heparin Vial(*)) 5,000 units SUBCUT Q8HR [facility] Last Admin: 07/29/18 13:59 Dose: 5,000 units Ceftriaxone Sodium 1 gm/ (Sodium Chloride) 50 mls @ 200 mls/hr IVPB Q24H [facility] Last Admin: 07/29/18 13:59 Dose: 200 mls/hr Insulin Glargine (Lantus(*)) 8 units SUBCUT Q24H [facility] Last Admin: 07/29/18 17:26 Dose: 8 units Insulin Human Lispro (Humalog*) 0 units SUBCUT AC [facility]; Protocol Last Admin: 07/29/18 17:26 Dose: 5 units Metoprolol Tartrate (Lopressor Tab*) 12.5 mg PO Q12HR [facility] Last Admin: 07/29/18 08:44 Dose: 12.5 mg Nitroglycerin (Nitroglycerin Tab 0.4 Mg*) 0.4 mg SL Q5M PRN PRN Reason: PAIN - CHEST Tamsulosin HCl (Flomax Cap*) 0.8 mg PO DAILY [facility] Last Admin: 07/29/18 08:43 Dose: 0.8 mg Vital Signs - 8 hr 07/29/18 07/29/18 07/29/18 11:43 12:33 15:36 Temperature 97.9 F 98.7 F 99.6 F Pulse Rate 76 84 64 Respiratory 18 18 20 Rate Blood Pressure 94/80 98/52 122/56 (mmHg) O2 Sat by Pulse 100 98 98 Oximetry Oxygen Devices in Use Now: Nasal Cannula Appearance: 88 yo M in nAD, aAOx3 Eyes: No Scleral Icterus, PERRLA Ears/Nose/Mouth/Throat: NL Teeth, Lips, Gums, Mucous Membranes Moist Neck: NL Appearance and Movements; NL JVP, Trachea Midline Respiratory: Symmetrical Chest Expansion and Respiratory Effort, - - LLL rhonchi Cardiovascular: NL Sounds; No Murmurs; No JVD, RRR Abdominal: NL Sounds; No Tenderness; No Distention Lymphatic: No Cervical Adenopathy Extremities: No Edema Skin: No Rash or Ulcers, No Nodules or Sclerosis Neurological: Alert and Oriented x 3, NL Muscle Strength and Tone Result Diagrams: 07/29/18 06:02 07/29/18 06:02 Additional Lab and Data: Laboratory Results - last 24 hr 07/28/18 07/28/18 07/28/18 05:26 05:26 05:26 WBC 10.0 RBC 3.61 L Hgb 11.1 L Hct 33 L MCV 92 MCH 31 MCHC 34 RDW 14 Plt Count 338 MPV 6.7 L Neut % (Auto) 81.2 Lymph % (Auto) 7.2 [place] % (Auto) 11.3 Eos % (Auto) 0.1 Baso % (Auto) 0.2 Absolute Neuts (auto) 8.1 H Absolute Lymphs (auto) 0.7 L Absolute Monos (auto) 1.1 H Absolute Eos (auto) 0 Absolute Basos (auto) 0 Absolute Nucleated RBC 0 Nucleated RBC % 0.1 Sodium 137 Potassium 4.8 Chloride 103 Carbon Dioxide 25 Anion Gap 9 BUN 34 H Creatinine 1.67 H Est GFR ( Amer) 47.4 Est GFR (Non-Af Amer) 39.2 BUN/Creatinine Ratio 20.4 H Glucose 220 H POC Glucose (mg/dL) Hemoglobin A1c 7.1 H Calcium 8.8 07/28/18 07/28/18 07/28/18 07:12 11:09 16:14 WBC RBC Hgb Hct MCV MCH MCHC RDW Plt Count MPV Neut % (Auto) Lymph % (Auto) [place] % (Auto) Eos % (Auto) Baso % (Auto) Absolute Neuts (auto) Absolute Lymphs (auto) Absolute Monos (auto) Absolute Eos (auto) Absolute Basos (auto) Absolute Nucleated RBC Nucleated RBC % Sodium Potassium Chloride Carbon Dioxide Anion Gap BUN Creatinine Est GFR ( Amer) Est GFR (Non-Af Amer) BUN/Creatinine Ratio Glucose POC Glucose (mg/dL) 222 H 279 H 282 H Hemoglobin A1c Calcium Microbiology and Other Data: Microbiology 07/26/18 12:45 Blood Venous Aerobic Blood Culture - Preliminary No Growth Day 2 07/26/18 12:45 Blood Venous Anaerobic Blood Culture - Preliminary No Growth Day 2 07/27/18 01:55 Urine Urine Culture - Final 07/27/18 01:55 Urine Legionella Urinary Antigen - Final Negative Legionella Antigen 07/27/18 01:55 Urine Streptococcus pneumoniae Ag Screen - Final Negative S. pneumo Antigen 07/26/18 13:03 Nasal Influenza Types A,B Antigen - Final Specimen received for Influenza A/B Molecular testing Assess/Plan/Problems-Billing Assessment: 87 yo male PMH CAD with 4 stents with 2002 [facility] documenting subtotal LAD occlusion, NIDDM, HTHN, HLD with chronic PATEL and exertional chest pain but refusing additional cardiac workup presenting with left chest pain and suprapubic pain. left midlung consolidation, fever, leukocytosis, tachycardia, tachypnea suspicious for sepsis secondary to pneumonia. Acute hypoxic respiratory failure. CFTX, azithromycin. ECHO with evidence of multiple regional wall motion abnormalities and EF 30%. Not wanting cardiac intervention though Full Code and would want return to the hospital if gets SOB again. - Patient Problems (1) CAD (coronary artery disease) Comment: reported 4 stents (2001) continue nitro SL prn. continue (new) metoprolol 12.5mg q12 for now given resolving sepsis. titrate up as able former smoker (quit 18 years ago) refusing nuclear stress or LHC. EKG with inferior Q wave in III and anterior lateral ST depressions and TWI II. ECHO with multiple regional wall motion abnormalities. Will attempt medical management. Aware of EF 30% (2) Diabetes mellitus Comment: A1C checked: 7.1% continue sliding scale added lantus 8U q24 given hyperglycemic in 200s on 07/28/18. Restarting glipizide for 07/30/18. (3) HLD (hyperlipidemia) Comment: atorvastatin increased to 80 mg from started 10mg given suspected severe underlying CAD and confirmed DM. (home is pravastatin 40mg) HDL 71, HDL 33 (4) Kidney disease Comment: Unknown baseline, but likely degree of chronic kidney disease. 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 (5) Pneumonia Comment: Continue ceftriaxone, azithromycin strep pna and legionella urine Ag negative. f/u Bcx NGTD f/u sputum cx(has not been able to provide) flu negative. 2 view CXR with continue left lung consolidation, described as more pleural based. He is former smoker and will need continued imaging as outpatient to rule out parenchymal pathology. (6) Sepsis Comment: fever, tachycardia, leukocytosis, tachpynea, acute hypoxic respiratory failure secondary to left middle lobe pneumonia. fever curve, HR, RR improving, still with significant oxygen requirement. (7) Acute systolic CHF (congestive heart failure) Comment: cont Lasix 40 mg IV BID EF noted at 30% and mod . (8) DVT prophylaxis Comment: HSQ Status and Disposition: medicine inpatient. still with significant oxygen requirement. PT cont (though would likely refuse placement)
[2018-07-29] MEDS: Atorvastatin* 80 MG TAB PO SCH (20:54)
[2018-07-30] MEDS: Heparin VIAL(*) 5000 UNITS/ML VIAL (FIVE THOUSAND) SUBCUT SCH ×3 (05:01→20:47)
[2018-07-30 06:08] LABS: ABS Basophils 0.1 10^3/ul (0-0.2); ABS Eosinophils 0.2 10^3/ul (0-0.6); ABS Lymphocytes 0.8 10^3/ul (1.0-4.8); ABS Monocytes 0.8 10^3/ul (0-0.8); ABS Neutrophils 5.3 10^3/ul (1.5-7.7); ABS Nucleated RBC 0 10^3/ul; Eosinophil % 3.2 %; Hematocrit 33 % (42-52); Hemoglobin 10.8 g/dl (14.0-18.0); Lymphocyte % 10.6 %; Mean Corpuscular HGB Conc 33 g/dl (31-36); Mean Corpuscular Hemoglobin 30 pg (27-31); Mean Corpuscular Volume 91 fL (80-94); Mean Platelet Volume 7.1 fL (7.4-10.4); Nucleated Red Blood Cells % 0; Platelet Count 364 10^3/ul (150-450); Red Blood Count 3.58 10^6/ul (4.00-5.40); Red Cell Distribution Width 14 % (10.5-15); White Blood Count 7.1 10^3/ul (3.5-10.8)
[2018-07-30 06:21] LABS: EGFR Non-African American 41.4 (>60)
[2018-07-30] MEDS: Furosemide IV* 10 MG/ML VIAL (40 MG) IV SCH ×2 (08:26→14:27)
[2018-07-30] MEDS: Cyanocobalamin TAB* 500 MCG PO SCH (08:26)
[2018-07-30] MEDS: Aspirin EC TAB* 81 MG TAB.EC PO SCH (08:26)
[2018-07-30] MEDS: glipiZIDE TAB* 5 MG PO SCH (08:26)
[2018-07-30] MEDS: Metoprolol Tartrate TAB* 25 MG PO SCH ×2 (08:26→20:46)
[2018-07-30] MEDS: Folic Acid TAB* 1 MG PO SCH (08:26)
[2018-07-30] MEDS: Insulin LISPRO* 1 UNITS UNIT SUBCUT SCH ×3 (08:26→17:31)
[2018-07-30] MEDS: Tamsulosin CAP* 0.4 MG PO SCH (08:26)
[2018-07-30] MEDS ORDERED: Magnesium Sulfate 1 GM IV* 1 GM/100 ML BAG IV ONE (10:26)
[2018-07-30] MEDS ORDERED: KCL 20 MEQ/100 ML IVPREMIX* 20 MEQ/100 ML BAG IV ONE (13:34)
--- NOTE | 2018-07-30 13:41 | PN ---
Subjective Date of Service: 07/30/18 Interval History: Pt had a few beats of SVT after walking with PT today. Asymptomatic. Wants to go home tomorrow "no matter what". Is aware that he may go on home 02. Pt requests regular diet due to problems getting enough nutrition on cardiac, diabetic diet Objective Active Medications: Acetaminophen (Tylenol Tab*) 650 mg PO Q4H PRN PRN Reason: FEVER/PAIN Al Hydrox/Mg Hydrox/Simethicone (Maalox Plus*) 30 ml PO Q6H PRN PRN Reason: INDIGESTION Albuterol (Ventolin 2.5 Mg/3 Ml Neb.Юлия*) 2.5 mg INH [id number] AWAKE PRN PRN Reason: sob/wheezing Aspirin (Aspirin Ec Tab*) 81 mg PO DAILY [facility] Last Admin: 07/30/18 08:26 Dose: 81 mg Atorvastatin Calcium (Lipitor*) 80 mg PO BEDTIME [facility]; Protocol Last Admin: 07/29/18 20:54 Dose: 80 mg Cyanocobalamin (Vitamin B12 Tab*) 1,000 mcg PO DAILY [facility] Last Admin: 07/30/18 08:26 Dose: 1,000 mcg Dextrose (D50w Syringe 50 Ml*) 12.5 gm IV PUSH .FOR FS < 60 - SS PRN PRN Reason: FS < 60 Folic Acid (Folvite Tab*) 1 mg PO DAILY [facility] Last Admin: 07/30/18 08:26 Dose: 1 mg Furosemide (Lasix Iv*) 40 mg IV 0800,1500 [facility] Last Admin: 07/30/18 08:26 Dose: 40 mg Glipizide (Glucotrol Tab*) 5 mg PO QAM [facility] Last Admin: 07/30/18 08:26 Dose: 5 mg Guaifenesin (Robitussin*) 20 ml PO QID PRN PRN Reason: CONGESTION Heparin Sodium (Porcine) (Heparin Vial(*)) 5,000 units SUBCUT Q8HR [facility] Last Admin: 07/30/18 05:01 Dose: 5,000 units Ceftriaxone Sodium 1 gm/ (Sodium Chloride) 50 mls @ 200 mls/hr IVPB Q24H [facility] Last Admin: 07/29/18 13:59 Dose: 200 mls/hr Potassium Chloride (Potassium Chloride 20 Meq/100 Ml Ivpremix*) 20 meq in 100 mls @ 50 mls/hr IV ONCE ONE Stop: 07/30/18 15:33 Insulin Glargine (Lantus(*)) 8 units SUBCUT Q24H [facility] Last Admin: 07/29/18 17:26 Dose: 8 units Insulin Human Lispro (Humalog*) 0 units SUBCUT AC [facility]; Protocol Last Admin: 07/30/18 12:35 Dose: 3 units Magnesium Oxide (Magox 400 Tab*) 800 mg PO DAILY [facility] Metoprolol Tartrate (Lopressor Tab*) 12.5 mg PO Q12HR [facility] Last Admin: 07/30/18 08:26 Dose: 12.5 mg Nitroglycerin (Nitroglycerin Tab 0.4 Mg*) 0.4 mg SL Q5M PRN PRN Reason: PAIN - CHEST Tamsulosin HCl (Flomax Cap*) 0.8 mg PO DAILY [facility] Last Admin: 07/30/18 08:26 Dose: 0.8 mg Vital Signs - 8 hr 07/30/18 07/30/18 07/30/18 07:29 08:00 11:51 Temperature 98.5 F 98.0 F Pulse Rate 74 74 Respiratory 18 18 20 Rate Blood Pressure 100/48 126/65 (mmHg) O2 Sat by Pulse 98 96 Oximetry Oxygen Devices in Use Now: Nasal Cannula Appearance: 88 yo M in nAD, aAOx3 Eyes: No Scleral Icterus, PERRLA Ears/Nose/Mouth/Throat: NL Teeth, Lips, Gums, Mucous Membranes Moist Neck: NL Appearance and Movements; NL JVP, Trachea Midline Respiratory: Symmetrical Chest Expansion and Respiratory Effort, - - left lung crackles at base Cardiovascular: RRR, - - 2/6 GERRI at RUSB Abdominal: NL Sounds; No Tenderness; No Distention Lymphatic: No Cervical Adenopathy Extremities: No Edema, No Clubbing, Cyanosis Skin: No Rash or Ulcers, No Nodules or Sclerosis Neurological: Alert and Oriented x 3, NL Muscle Strength and Tone Result Diagrams: 07/30/18 05:31 07/30/18 05:31 Additional Lab and Data: Laboratory Results - last 24 hr 07/28/18 07/28/18 07/28/18 05:26 05:26 05:26 WBC 10.0 RBC 3.61 L Hgb 11.1 L Hct 33 L MCV 92 MCH 31 MCHC 34 RDW 14 Plt Count 338 MPV 6.7 L Neut % (Auto) 81.2 Lymph % (Auto) 7.2 [place] % (Auto) 11.3 Eos % (Auto) 0.1 Baso % (Auto) 0.2 Absolute Neuts (auto) 8.1 H Absolute Lymphs (auto) 0.7 L Absolute Monos (auto) 1.1 H Absolute Eos (auto) 0 Absolute Basos (auto) 0 Absolute Nucleated RBC 0 Nucleated RBC % 0.1 Sodium 137 Potassium 4.8 Chloride 103 Carbon Dioxide 25 Anion Gap 9 BUN 34 H Creatinine 1.67 H Est GFR ( Amer) 47.4 Est GFR (Non-Af Amer) 39.2 BUN/Creatinine Ratio 20.4 H Glucose 220 H POC Glucose (mg/dL) Hemoglobin A1c 7.1 H Calcium 8.8 07/28/18 07/28/18 07/28/18 07:12 11:09 16:14 WBC RBC Hgb Hct MCV MCH MCHC RDW Plt Count MPV Neut % (Auto) Lymph % (Auto) [place] % (Auto) Eos % (Auto) Baso % (Auto) Absolute Neuts (auto) Absolute Lymphs (auto) Absolute Monos (auto) Absolute Eos (auto) Absolute Basos (auto) Absolute Nucleated RBC Nucleated RBC % Sodium Potassium Chloride Carbon Dioxide Anion Gap BUN Creatinine Est GFR ( Amer) Est GFR (Non-Af Amer) BUN/Creatinine Ratio Glucose POC Glucose (mg/dL) 222 H 279 H 282 H Hemoglobin A1c Calcium Microbiology and Other Data: Microbiology 07/26/18 12:45 Blood Venous Aerobic Blood Culture - Preliminary No Growth Day 2 07/26/18 12:45 Blood Venous Anaerobic Blood Culture - Preliminary No Growth Day 2 07/27/18 01:55 Urine Urine Culture - Final 07/27/18 01:55 Urine Legionella Urinary Antigen - Final Negative Legionella Antigen 07/27/18 01:55 Urine Streptococcus pneumoniae Ag Screen - Final Negative S. pneumo Antigen 07/26/18 13:03 Nasal Influenza Types A,B Antigen - Final Specimen received for Influenza A/B Molecular testing Assess/Plan/Problems-Billing Assessment: 87 yo male PMH CAD with 4 stents with 2001 [facility] documenting subtotal LAD occlusion, NIDDM, HTHN, HLD with chronic PATEL and exertional chest pain but refusing additional cardiac workup presenting with left chest pain and suprapubic pain. left midlung consolidation, fever, leukocytosis, tachycardia, tachypnea suspicious for sepsis secondary to pneumonia. Acute hypoxic respiratory failure. CFTX, azithromycin. ECHO with evidence of multiple regional wall motion abnormalities and EF 30%. Not wanting cardiac intervention though Full Code and would want return to the hospital if gets SOB again. - Patient Problems (1) CAD (coronary artery disease) Comment: reported 4 stents (2001) continue nitro SL prn. continue (new) metoprolol 12.5mg q12 for now given resolving sepsis, titrate up today to 25 mg BID. former smoker (quit 18 years ago) refusing nuclear stress or LHC. EKG with inferior Q wave in III and anterior lateral ST depressions and TWI II. ECHO with multiple regional wall motion abnormalities. Will cont medical management. Aware of EF 30% (2) Diabetes mellitus Comment: A1C checked: 7.1% continue sliding scale added lantus 8U q24 given hyperglycemic in 200s on 07/28/18. Restarting glipizide for 07/30/18. (3) HLD (hyperlipidemia) Comment: atorvastatin increased to 80 mg from started 10mg given suspected severe underlying CAD and confirmed DM. (home is pravastatin 40mg) HDL 71, HDL 33 (4) Kidney disease Comment: Unknown baseline, but likely degree of chronic kidney disease. 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 (5) Pneumonia Comment: Continue ceftriaxone, azithromycin strep pna and legionella urine Ag negative. f/u Bcx NGTD f/u sputum cx(has not been able to provide) flu negative. 2 view CXR with continue left lung consolidation, described as more pleural based. He is former smoker and will need continued imaging as outpatient to rule out parenchymal pathology. (6) Sepsis Comment: fever, tachycardia, leukocytosis, tachpynea, acute hypoxic respiratory failure secondary to left middle lobe pneumonia. fever curve, HR, RR improving, still with significant oxygen requirement. (7) Acute systolic CHF (congestive heart failure) Comment: cont Lasix 40 mg IV BID-last dose tonight EF noted at 30% and mod . (8) DVT prophylaxis Comment: HSQ Status and Disposition: medicine inpatient. still with significant oxygen requirement. PT cont (though would likely refuse placement)
[2018-07-30] MEDS: Magnesium Oxide TAB* 400 MG PO SCH (14:27)
[2018-07-30] MEDS: cefTRIAXone(*) 1 GM in NS 0.9% 50 ML* 50 ML IVPB SCH (14:27)
[2018-07-30] MEDS: Insulin GLARGINE(*) 1 UNITS UNIT SUBCUT SCH (17:31)
[2018-07-30] MEDS: Atorvastatin* 80 MG TAB PO SCH (20:45)
[2018-07-31] MEDS: Heparin VIAL(*) 5000 UNITS/ML VIAL (FIVE THOUSAND) SUBCUT SCH (05:16)
[2018-07-31 06:28] LABS: ABS Basophils 0.1 10^3/ul (0-0.2); ABS Eosinophils 0.4 10^3/ul (0-0.6); ABS Lymphocytes 0.8 10^3/ul (1.0-4.8); ABS Monocytes 0.7 10^3/ul (0-0.8); ABS Nucleated RBC 0 10^3/ul; Eosinophil % 4.8 %; Hematocrit 34 % (42-52); Hemoglobin 11.2 g/dl (14.0-18.0); Lymphocyte % 10.6 %; Mean Corpuscular HGB Conc 34 g/dl (31-36); Mean Corpuscular Hemoglobin 30 pg (27-31); Mean Corpuscular Volume 90 fL (80-94); Mean Platelet Volume 6.8 fL (7.4-10.4); Nucleated Red Blood Cells % 0.2; Platelet Count 418 10^3/ul (150-450); Red Blood Count 3.71 10^6/ul (4.00-5.40); Red Cell Distribution Width 14 % (10.5-15); White Blood Count 7.9 10^3/ul (3.5-10.8)
[2018-07-31 07:46] LABS: EGFR Non-African American 43.6 (>60)
[2018-07-31] MEDS: Insulin LISPRO* 1 UNITS UNIT SUBCUT SCH (09:50)
[2018-07-31] MEDS: Cyanocobalamin TAB* 500 MCG PO SCH (09:50)
[2018-07-31] MEDS: Aspirin EC TAB* 81 MG TAB.EC PO SCH (09:50)
[2018-07-31] MEDS: glipiZIDE TAB* 5 MG PO SCH (09:50)
[2018-07-31] MEDS: Tamsulosin CAP* 0.4 MG PO SCH (09:50)
[2018-07-31] MEDS: Magnesium Oxide TAB* 400 MG PO SCH (09:50)
[2018-07-31] MEDS: Folic Acid TAB* 1 MG PO SCH (09:50)
[2018-07-31] MEDS: Metoprolol Tartrate TAB* 25 MG PO SCH (09:50)
[2018-07-31 11:16] VITALS: BP 124/36
[2018-07-31] MEDS ORDERED: Furosemide IV* 10 MG/ML VIAL (40 MG) IV ONE (11:44)
--- NOTE | 2018-08-01 05:21 | DS ---
CC: Dr. Pastrana; [facility] - Dr. Mason; Dr. Iverson * DISCHARGE SUMMARY: DATE OF ADMISSION: 07/26/18 DATE OF DISCHARGE: 07/31/18 PRIMARY CARE PROVIDER: Dr. Kendall Pastrana. DISCHARGE DIAGNOSES: 1. Sepsis due to pneumonia, community acquired. 2. Acute systolic congestive heart failure. 3. Acute renal failure and likely chronic kidney disease. 4. Elevated troponin likely due to demand ischemia. 5. Acute hypoxemic respiratory failure that resolved by the time of discharge. The patient is being discharged with no oxygen supplementation. PAST MEDICAL HISTORY: 1. Coronary artery disease, status post stent placement in the past. 2. Diabetes mellitus. 3. Hypertension. 4. Hyperlipidemia. 5. History of benign prostatic hyperplasia. MEDICATIONS AT DISCHARGE: Include: 1. Augmentin 500 mg p.o. b.i.d. for total of 2 days, then stop. 2. Aspirin 325 mg daily. 3. Vitamin B12 1000 mcg daily. 4. Folvite 1 mg daily. 5. Glucotrol 5 mg daily. 6. Guaifenesin 400 mg up to 4 times a day p.r.n. 7. Lisinopril 5 mg a day. 8. Nitroglycerin tablet 0.4 mg on a p.r.n. basis. 9. Pravachol 40 mg at bedtime. 10. Flomax 0.8 mg daily. 11. Furosemide 40 mg daily. 12. Metoprolol tartrate 25 mg every 12 hours. DISCHARGE FOLLOWUP: The patient is being set up with visiting nurse association at discharge. The patient is recommended to follow up with Dr. Pastrana in 4 to 7 days and repeat blood work to be done on 08/02/18. The patient also is set up for [facility] on 08/05/18, if unable to follow up with [place] service within the next week. LABORATORY DATA AND STUDIES PERFORMED DURING HOSPITAL STAY: Included: On 07/31, white blood cell count of 7.9, hemoglobin 11.2, hematocrit of 34, and platelets of 418. Sodium was 135, potassium 4.0, chloride 95, carbon dioxide 29 , BUN 42, creatinine 1.57. The patient's creatinine at admission was 1.9. The patient's hemoglobin A1c obtained on 07/28/18 was 7.1. The patient's troponin peaked at 0.14 on 07/26/18. Cholesterol profile showed triglycerides of 138, cholesterol total of 132, LDL of 71, and HDL of 33. Transthoracic echocardiogram obtained on 07/26/18 showed "mild concentric LVH. There are multiple regional wall motion abnormalities with [id number] decreased left ventricular systolic function at 30%. The left atrium is slightly dilated. 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 He was noted to have sepsis due to community-acquired pneumonia. He also had elevated troponin and creatinine of 1.9. He was treated with broad-spectrum antibiotics including ceftriaxone and azithromycin, and his microbiology studies were negative for legionella antigen and Streptococcus pneumo antigen. Blood cultures were negative in growth and serology was negative for flu test. The patient gradually improved but he was also noted to have an EF of 30% with an elevated troponin likely due to demand ischemia. The patient also noted to have multiple regional wall motion abnormalities on his echocardiogram and further evaluation with either stress test or evaluation by Cardiology was recommended, which the patient adamantly refused. He did not wish any further invasive procedures or treatments with regards to his heart. The patient was furthermore treated for acute systolic CHF with IV diuretics throughout his hospital stay. His weight by the time of discharge was down by approximately 11 pounds, from 178 pounds at admission to 167 pounds at discharge. The patient was recommended at discharge to follow up with his weights on a daily basis and if his weight increases to above 170 pounds, to call his doctor for further management with diuretics. He also had significant hypoxemia due to CHF and pneumonia during his hospital stay but that resolved by the time of discharge. On the day of discharge, he ambulated on room air with oxygen saturations above 90%. At discharge, I informed the patient that it is important for him to check his fluid status on a daily basis with his weight. He is being discharged on 40 mg of Lasix on a daily basis but it is possible that he will either have too much or too little of the diuretics and that needs to be followed closely. He is to have a basic metabolic panel drawn on 08/02/18 to be sent to Dr. Pastrana. He was also set up with our [facility] if he is unable to get an appointment with Dr. Pastrana within the next week for followup. PHYSICAL EXAMINATION AT THE TIME OF DISCHARGE: Blood pressure of 124/36, heart rate of 76 and regular, respiratory rate 18, oxygen saturation 93% on room air, temperature 97.6. General: The patient is a very pleasant 88-year-old male, who is in no acute distress, alert, awake, and oriented x3. HEENT: Head, atraumatic and normocephalic. Eyes: Pupils are equal, reactive to light and accommodation. Oropharynx clear. Mucosa moist. Neck: Supple. No JVD, no bruits bilaterally. Cardiovascular: Regular rate and rhythm with 2/6 systolic ejection murmur noted on auscultation of the right upper sternal border radiating to bilateral carotids. Respiratory: Crackles at the left lung base, otherwise clear. Abdomen: Soft, nontender. Bowel sounds are present in all 4 quadrants. Extremities: There is no edema. Pulses +2 bilaterally. No clubbing or cyanosis. Neuro Evaluation: Speech clear. Cranial nerves II through XII grossly intact. Motor strength is 5/5 bilaterally. Please note that this is a short summary of the patient's hospitalization, please refer to further medical records for details. TIME SPENT: Approximately 40 minutes was spent on the patient's discharge. [id number]/CPS #: [id number] MTDD
== END 2018-07-31 12:40 | disposition home health service (06) | DRG 871 ==
LOC: ED 11:31 → MEDTELE 15:01
PROVIDERS: ADMIT Internal Medicine; ATTEND Internal Medicine
DX: A41.9 Sepsis, unspecified organism (principal); J18.1 Lobar pneumonia, unspecified organism; I50.21 Acute systolic (congestive) heart failure; J96.01 Acute respiratory failure with hypoxia; N17.9 Acute kidney failure, unspecified; I13.0 Hypertensive heart and chronic kidney disease with heart failure and stage 1 through stage 4 chronic kidney disease, or unspecified chronic kidney disease; I24.8 Other forms of acute ischemic heart disease; E11.9 Type 2 diabetes mellitus without complications; E78.5 Hyperlipidemia, unspecified; N40.0 Benign prostatic hyperplasia without lower urinary tract symptoms; Z66 Do not resuscitate; E83.42 Hypomagnesemia; N18.9 Chronic kidney disease, unspecified; I25.10 Atherosclerotic heart disease of native coronary artery without angina pectoris; I27.20 Pulmonary hypertension, unspecified; I35.0 Nonrheumatic aortic (valve) stenosis; Z79.82 Long term (current) use of aspirin; I25.2 Old myocardial infarction; Z95.5 Presence of coronary angioplasty implant and graft; Z83.3 Family history of diabetes mellitus; Z80.9 Family history of malignant neoplasm, unspecified; Z82.49 Family history of ischemic heart disease and other diseases of the circulatory system; Z87.891 Personal history of nicotine dependence; Z79.84 Long term (current) use of oral hypoglycemic drugs
CPT/HCPCS: 36415; 71045; 71046; 80048; 80053; 80061; 81003; 81015; 83036; 83605; 83735; 83880; 84484; 85025; 85610; 85730; 87040; 87086; 87899; 93005; 93306; 99284; A9270-GY; G8978-GP-CH; G8978-GP-CI; G8979-GP-CH; G8980-GP-CH; J0456; J0696; J1644; J1940; J3475; J3480

== ENCOUNTER 2018-08-03 09:04 | Inpatient (IN) | payer MEDICARE ==
[2018-08-03 09:52] LABS: ABS Basophils 0.1 10^3/ul (0-0.2); ABS Eosinophils 0.2 10^3/ul (0-0.6); ABS Lymphocytes 0.9 10^3/ul (1.0-4.8); ABS Monocytes 0.6 10^3/ul (0-0.8); ABS Neutrophils 11.1 10^3/ul (1.5-7.7); ABS Nucleated RBC 0 10^3/ul; Eosinophil % 1.4 %; Hematocrit 34 % (42-52); Hemoglobin 11.1 g/dl (14.0-18.0); Lymphocyte % 7.3 %; Mean Corpuscular HGB Conc 33 g/dl (31-36); Mean Corpuscular Hemoglobin 30 pg (27-31); Mean Corpuscular Volume 92 fL (80-94); Mean Platelet Volume 6.7 fL (7.4-10.4); Nucleated Red Blood Cells % 0.1; Platelet Count 554 10^3/ul (150-450); Red Blood Count 3.66 10^6/ul (4.00-5.40); Red Cell Distribution Width 14 % (10.5-15)
[2018-08-03 10:09] LABS: EGFR Non-African American 28.3 (>60)
[2018-08-03] MEDS ORDERED: NS 0.9% 1000 ML* 1,000 ML IV ONE (10:17)
--- NOTE | 2018-08-03 10:24 | ED ---
Shortness of Breath - HPI Summary HPI Summary: Patient is a 88-year-old male who presents emergency department for ongoing shortness of breath times several days. Patient resides at home. He denies history of lung problems. Patient was admitted to [facility] from 07/26-07/30 for pneumonia and possible CHF. Patient states he finished antibiotics yesterday. He denies fever, chills, abdominal pain, vomiting, diarrhea. He notes shortness of breath with ambulation with mild chest discomfort. Patient is currently comfortable sitting on stretcher. Symptoms are moderate in severity. Past medical history of diabetes, CAD, hyperlipidemia. - History of Current Complaint Chief Complaint: EDShortnessOfBreath Time Seen by Provider: 08/03/18 09:21 - Allergy/Home Medications Allergies/Adverse Reactions: Allergies Allergy/AdvReac Type Severity Reaction Status Date / Time No Known Allergies Allergy Verified 08/03/18 09:13 PMH/Surg Hx/FS Hx/Imm Hx Previously Healthy: Yes Endocrine/Hematology History: 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 Denies: Hx Thyroid Disease Cardiovascular History: Reports: Hx Congestive Heart Failure, Hx Hypertension Respiratory History: Reports: Other Respiratory Problems/Disorders - PNEUMONIA Denies: Hx Asthma GI History: Denies: Hx Ulcer History: Reports: Other Problems/Disorders - BPH Sensory History: Reports: Hx Contacts or Glasses, Hx Hearing Problem - FOND DU LAC Denies: Hx Hearing Aid, Other Sensory Impairments Opthamlomology History: Reports: Hx Contacts or Glasses Denies: Other Sensory Impairments - Surgical History Surgery Procedure, Year, and Place: stents Infectious Disease History: No Infectious Disease History: Denies: Hx Hepatitis, Hx Human Immunodeficiency Virus (HIV), Hx of Known/ Suspected MRSA, Hx Shingles, Hx Tuberculosis, Traveled Outside the in Last 30 Days - Family History Known Family History: Negative: Hypertension - Social History Occupation: Retired Lives: With Family Alcohol Use: Rare Substance Use Type: Reports: None Hx Tobacco Use: Yes Smoking Status (MU): Former Smoker Review of Systems Constitutional: Negative Negative: Fever, Chills Positive: Chest Pain Positive: Shortness Of Breath, Cough Gastrointestinal: Negative Negative: Abdominal Pain, Vomiting, Diarrhea Genitourinary: Negative Musculoskeletal: Negative Skin: Negative Neurological: Negative All Other Systems Reviewed And Are Negative: Yes Physical Exam Triage Information Reviewed: Yes Vital Signs On Initial Exam: Initial Vitals Temp Pulse Resp BP Pulse Ox 98.8 F 84 20 113/46 94 08/03/18 09:10 08/03/18 09:10 08/03/18 09:10 08/03/18 09:10 08/03/18 09:10 Vital Signs Reviewed: Yes Appearance: Positive: Well-Appearing - Patient sitting up in bed in no acute distress. Pleasant. Answers questions appropriately. Son present. Skin: Positive: Warm, Dry Head/Face: Positive: Normal Head/Face Inspection Eyes: Positive: Normal, EOMI, Conjunctiva Clear Neck: Positive: Supple Respiratory/Lung Sounds: Positive: Clear to Auscultation, Breath Sounds Present Cardiovascular: Positive: Normal, RRR Abdomen Description: Positive: Nontender, Soft Musculoskeletal: Positive: Normal, Strength/ROM Intact Neurological: Positive: Normal, CN Intact II-III Psychiatric: Positive: Affect/Mood Appropriate - Carlos Coma Scale Best Eye Response: 4 - Spontaneous Best Motor Response: 6 - Obeys Commands Best Verbal Response: 5 - Oriented Coma Scale Total: 15 Diagnostics - Vital Signs Vital Signs Temp Pulse Resp BP Pulse Ox 08/03/18 10:00 81 31 93 08/03/18 09:32 87 28 116/51 94 08/03/18 09:20 90 96 08/03/18 09:19 91 114/54 96 08/03/18 09:10 98.8 F 84 20 113/46 94 - Laboratory Lab Results: Lab Results 08/03/18 08/03/18 08/03/18 Range/Units 09:39 09:39 09:39 WBC 13.0 H (3.5-10.8) 10^3/ul RBC 3.66 L (4.00-5.40) 10^6/ul Hgb 11.1 L (14.0-18.0) g/dl Hct 34 L (42-52) % MCV 92 (80-94) fL MCH 30 (27-31) pg MCHC 33 (31-36) g/dl RDW 14 (10.5-15) % Plt Count 554 H D (150-450) 10^3/ul MPV 6.7 L (7.4-10.4) fL Neut % (Auto) 85.3 % Lymph % (Auto) 7.3 % [place] % (Auto) 4.9 % Eos % (Auto) 1.4 % Baso % (Auto) 1.1 % Absolute Neuts (auto) 11.1 H (1.5-7.7) 10^3/ul Absolute Lymphs (auto) 0.9 L (1.0-4.8) 10^3/ul Absolute Monos (auto) 0.6 (0-0.8) 10^3/ul Absolute Eos (auto) 0.2 (0-0.6) 10^3/ul Absolute Basos (auto) 0.1 (0-0.2) 10^3/ul Absolute Nucleated RBC 0 10^3/ul Nucleated RBC % 0.1 Sodium 135 (135-145) mmol/L Potassium 4.5 (3.5-5.0) mmol/L Chloride 96 L (101-111) mmol/L Carbon Dioxide 30 (22-32) mmol/L Anion Gap 9 (2-11) mmol/L BUN 58 H (6-24) mg/dL Creatinine 2.21 H (0.67-1.17) mg/dL Est GFR ( Amer) 34.3 (>60) Est GFR (Non-Af Amer) 28.3 (>60) BUN/Creatinine Ratio 26.2 H (8-20) Glucose 383 H (70-100) mg/dL Lactic Acid 2.8 H* (0.5-2.0) mmol/L Calcium 9.7 (8.6-10.3) mg/dL Total Bilirubin 0.40 (0.2-1.0) mg/dL AST 32 (13-39) U/L ALT 104 H (7-52) U/L Alkaline Phosphatase 148 H (34-104) U/L Troponin I 0.28 H* (<0.04) ng/mL C-Reactive Protein 52.19 H (<8.01) mg/L B-Natriuretic Peptide (<=100) pg/mL Total Protein 7.0 (6.4-8.9) g/dL Albumin 3.1 L (3.2-5.2) g/dL Globulin 3.9 (2-4) g/dL Albumin/Globulin Ratio 0.8 L (1-3) 08/03/18 Range/Units 09:39 WBC (3.5-10.8) 10^3/ul RBC (4.00-5.40) 10^6/ul Hgb (14.0-18.0) g/dl Hct (42-52) % MCV (80-94) fL MCH (27-31) pg MCHC (31-36) g/dl RDW (10.5-15) % Plt Count (150-450) 10^3/ul MPV (7.4-10.4) fL Neut % (Auto) % Lymph % (Auto) % [place]ague % (Auto) % Eos % (Auto) % Baso % (Auto) % Absolute Neuts (auto) (1.5-7.7) 10^3/ul Absolute Lymphs (auto) (1.0-4.8) 10^3/ul Absolute Monos (auto) (0-0.8) 10^3/ul Absolute Eos (auto) (0-0.6) 10^3/ul Absolute Basos (auto) (0-0.2) 10^3/ul Absolute Nucleated RBC 10^3/ul Nucleated RBC % Sodium (135-145) mmol/L Potassium (3.5-5.0) mmol/L Chloride (101-111) mmol/L Carbon Dioxide (22-32) mmol/L Anion Gap (2-11) mmol/L BUN (6-24) mg/dL Creatinine (0.67-1.17) mg/dL Est GFR ( Amer) (>60) Est GFR (Non-Af Amer) (>60) BUN/Creatinine Ratio (8-20) Glucose (70-100) mg/dL Lactic Acid (0.5-2.0) mmol/L Calcium (8.6-10.3) mg/dL Total Bilirubin (0.2-1.0) mg/dL AST (13-39) U/L ALT (7-52) U/L Alkaline Phosphatase (34-104) U/L Troponin I (<0.04) ng/mL C-Reactive Protein (<8.01) mg/L B-Natriuretic Peptide 303 H (<=100) pg/mL Total Protein (6.4-8.9) g/dL Albumin (3.2-5.2) g/dL Globulin (2-4) g/dL Albumin/Globulin Ratio (1-3) Result Diagrams: 08/03/18 09:39 08/03/18 09:39 Lab Statement: Any lab studies that have been ordered have been reviewed, and results considered in the medical decision making process. Course/Dx - Course Course Of Treatment: Patient presenting with ongoing shortness of breath after recent admission for pneumonia and CHF. Afebrile and well-appearing. He is in no respiratory distress sitting up in stretcher. We will recheck basic blood work, EKG, chest x-ray. CBC shows mild acidosis of 13. Increase in creatinine and BUN at 58 and 2.21, glucose 383, lactic acid is 2.8, troponin is 0.28, BNP 3 of 3. EKG done at 0935 shows a sinus rhythm of 86 bpm, normal axis, minimal ST elevation in anterior leads, similar to prior tracings. Chest x-ray shows probable pulmonary edema and likely left hemothorax for effusion that is slightly smaller compared to last x-ray, reading per radiology. Given elevated lactate acid and creatinine we'll start patient on liter of fluids. Given troponin elevation and dehydration will admit. I spoke with hospitalist, Dr. Alegria, and patient has been admitted to her service. Results and plan discussed with patient and son & agree. - Diagnoses Provider Diagnoses: Dehydration, Acute kidney injury, Elevated troponin I level Discharge - Sign-Out/Discharge Documenting (check all that apply): Patient Departure All imaging exams completed and their final reports reviewed: Yes - Discharge Plan Condition: Stable Disposition: ADMITTED TO [facility] - Billing Disposition and Condition Condition: STABLE Disposition: Admitted to [facility]
[2018-08-03] MEDS ORDERED: Acetaminophen TAB* 325 MG PO PRN (12:36)
[2018-08-03] MEDS ORDERED: Ondansetron INJ* 2 MG/ML VIAL IV PRN (12:36)
[2018-08-03] MEDS ORDERED: Dextrose 50% Syringe 50 ML* 25 GM/50 ML SYRINGE IV PUSH PRN (12:40)
[2018-08-03] MEDS ORDERED: guaiFENesin LIQ* 100 MG/5 ML UDC PO PRN (12:43)
[2018-08-03] MEDS ORDERED: Albuterol 2.5 MG/3 ML NEB.SOL* (0.083%) INH PRN (12:43)
[2018-08-03] MEDS: Heparin VIAL(*) 5000 UNITS/ML VIAL (FIVE THOUSAND) SUBCUT SCH ×2 (14:13→21:32)
[2018-08-03] MEDS: Insulin LISPRO* 1 UNITS UNIT SUBCUT SCH (17:26)
[2018-08-03 17:50] LABS: Urine Appearance Cloudy; Urine Blood Negative (Negative); Urine Color Yellow; Urine Ketones Negative (Negative); Urine Protein Negative (Negative); Urine Red Blood Cell Absent (Absent); Urine Specific Gravity 1.015 (1.010-1.030); Urine Urobilinogen Negative (Negative); Urine White Blood Cell 3+(>20/hpf) (Absent)
--- NOTE | 2018-08-03 20:39 | HP ---
HISTORY AND PHYSICAL: DATE OF ADMISSION: 08/03/18 PROVIDER: Narinder Turner NP ATTENDING PHYSICIAN: Dr. Berta Alegria * (dictated by Narinder Turner NP). PRIMARY CARE PROVIDER: Dr. Pastrana of [facility]. CHIEF COMPLAINT: Shortness of breath and fatigue. HISTORY OF PRESENT ILLNESS: Mr. Whalen is an 88-year-old male, who presented to the ER today on 08/03/18 with concern for shortness of breath and weakness and fatigue. Mr. Whalen was recently admitted at [facility] from through 07/31/18, where he was diagnosed with community-acquired pneumonia with concurrent sepsis, acute systolic congestive heart failure, acute renal failure with suspected chronic kidney disease, elevated troponin due to demand ischemia, and acute hypoxemic respiratory failure that resolved with no need for supplemental oxygen. Mr. Whalen states that he went home and since then has felt tired. He states that he became very short of breath with exertion, it is not new when compared with when he was hospitalized. His family reports that he has been sitting in his chair a lot and sleeping more. The patient reports having increased urination secondary to his furosemide, as well as 4 to 5 episodes of diarrhea a day, which started when he was on antibiotics here in the hospital. His sons, who are here with him, state that they brought him some Gatorade to help with his p.o. intake. He was purchased 3 quarts of Gatorade, it took him approximately 3 days to finish 1 quart. The patient does endorse less fluid intake and decreased appetite. He did complete his Augmentin, which finished yesterday. He denies any fever, chills, dizziness or falls. He denies any chest pain or edema. He does state that his weight yesterday was 166 and today is 161. He denies shortness of breath at rest, but does endorse shortness of breath with exertion. He does report some coughing. He denies abdominal pain, nausea or vomiting, but does endorse diarrhea as per above. He reports increased urination, but denies dysuria, denies focal weakness, sensory loss, visual or hearing complaints, swallowing complaints, or new joint pains or muscle pains. He denies any rashes. Here in the ER, the patient received a liter of fluid. Labs were ordered with concern for WBCs of 13,000, platelet counts of 554,000, elevated BUN of 58, creatinine of 2.21, lactic acid of 2.8 and troponin of 0.28 with a CRP of 52.19. He did have a repeat chest x-ray, which I did review that was read as consistent with pulmonary edema and likely left hemithorax and pleural effusion that is fairly smaller when compared to 07/28/18 chest x-ray. Given these findings, Hospital Medicine was consulted for admission. PAST MEDICAL HISTORY: Includes: 1. Recent community-acquired pneumonia, status post antibiotic treatment. 2. Systolic congestive heart failure with recent [id number] exacerbation. 3. Recent wrtlm-is-bwnmfia renal disease. 4. Recent acute hypoxemic respiratory failure, resolved. 5. Coronary artery disease, status post stent placement. 6. Type 2 diabetes mellitus. 7. Hypertension. 8. Hyperlipidemia. 5. Benign prostatic hyperplasia. HOME MEDICATIONS: 1. Guaifenesin 400 mg 4 times a day p.r.n. 2. Glipizide 5 mg p.o. q.a.m. 3. Tamsulosin 0.8 mg daily. 4. Pravastatin 40 mg at bedtime. 5. Nitroglycerin 0.4 mg sublingual q.5 minutes p.r.n. x3 doses. 6. Metoprolol tartrate 25 mg q.12 hours. 7. Lisinopril 5 mg daily. 8. Furosemide 40 mg daily. 9. Folic acid 1 mg p.o. daily. 10. Vitamin B12 1000 mcg daily. 11. Aspirin 325 to 650 mg q.4 hours p.r.n. 12. Augmentin 500 mg b.i.d., completed on 08/02/18. ALLERGIES: No known drug allergies. FAMILY HISTORY: Two brothers with cancer. SOCIAL HISTORY: The patient is a former smoker quitting approximately 18 years ago. He endorses occasional alcohol use. He denies any illicit drug use. He is retired. He lives alone. His family lives within close proximity. He is . His surrogate decision maker is his son, Hari, who can be reached at . REVIEW OF SYSTEMS: A 12-point review of systems was completed, all pertinent positives and negatives are as per HPI. PHYSICAL EXAMINATION GENERAL: This is an elderly male, found sitting up in the stretcher in the emergency room. He is alert, oriented, interactive, and does not appear to be in any acute distress. VITAL SIGNS: Temperature 97.9, heart rate 84, respiratory rate 20, blood pressure 118/63, and O2 saturation is 96% on room air. HEENT: Head is atraumatic, normocephalic. Extraocular movements are intact. Pupils are equal, round and reactive to light. Tympanic membranes are intact. Oral mucosa is moist. NECK: Supple. No JVD is noted. LUNGS: Mildly diminished breath sounds, but there is fair aeration throughout all lung greenberg. Expiratory crackles noted at the left lung base. CARDIAC: Regular rate and rhythm. There is a grade 2/6 systolic ejection murmur that is best heard on the right upper sternal border. No lower extremity edema. ABDOMEN: Soft, nontender, nondistended with normoactive bowel sounds. MUSCULOSKELETAL: There is no clubbing or cyanosis of the digits. The patient is able to actively move all extremities. SKIN: Limited assessment, but appears grossly intact. NEUROLOGIC: Cranial nerves II through XII are grossly intact. 5/5 strength in upper and lower extremities. PSYCH: He is alert and oriented x3. Affect is appropriate. DIAGNOSTIC STUDIES/LAB DATA: CBC: WBC 13.0, hemoglobin 11.1, hematocrit 34, platelet count 554. CMP: Sodium 135, potassium 4.5, chloride 96, BUN 58, creatinine 2.21, glucose 383, lactic acid 2.8, calcium 9.7. Total bilirubin 0.4 , AST 32, ALT 104, and alk phos 148. Troponin 0.28. CRP 52.19. BNP 303. Albumin 3.1. Chest x-ray as per above. EKG reviewed, shows sinus rhythm with PVCs. Old medical records were reviewed. ASSESSMENT AND PLAN: This is an 88-year-old male, who presents today with shortness of breath with exertion, acute kidney injury, elevated troponin, and lactic acidosis as well as elevated WBC count after being recently treated for pneumonia. He will be admitted under observation status to the telemetry floor. The plan is as follows: 1. Dyspnea with exertion: Currently, his O2 saturation is in the mid to high 90s at rest. We will follow this with patient exertion when on the floor. This may be residual dyspnea from his recently treated pneumonia, as well as his heart failure. I discussed with family that this is maybe a lingering symptoms that will improve with time; however, with a white count, I would like to make sure that this is not a treatment failure for his community-acquired pneumonia. He is currently afebrile with a stable blood pressure and heart rate. I do not feel that he needs antibiotics at this time; however, we will continue to closely monitor and should there be evidence of fever or worsening respiratory status, we will certainly include antibiotics with appropriate coverage. 2. Acute kidney injury and dehydration. The patient presents with an elevated creatinine that is worsened when he was discharged. This is likely secondary to dehydration secondary to poor p.o. intake and recent diarrhea. He has received 1 liter of IV fluid. I am concerned that if we continue to give the patient fluid that he will likely develop pulmonary edema and so we will encourage p.o. fluids at this time and follow his labs tomorrow. 3. Elevated troponin. I suspect demand ischemia. It is elevated from the previous admission. We will continue to trend the troponins until they peak. He is currently denying chest pain. EKG is similar in appearance to the previous. 4. Diarrhea. I suspect that this is secondary to antibiotic use; however, we will collect the sample and send for stool culture and further testing, given the elevated white count as well as the frequency and elevated CRP. Encourage p.o. fluid intake. 5. History of systolic heart failure. This patient's presentation may also be related to his recent acute exacerbation. He did have some weight loss at home and this is likely a combination of fluid and decreased p.o. intake. We will hold his furosemide in the presence of dehydration, but this may be able to be restarted tomorrow depending on the patient's response to the fluid today and resuscitation efforts. Resume when appropriate. 6. History of hypertension. Hold lisinopril in the presence of acute kidney injury, but continue metoprolol with hold parameters. 7. Coronary artery disease. Continue aspirin and statins. 8. Type 2 diabetes. He is ordered consistent carbohydrate, low sodium diet and will be covering with lispro sliding scale. We will hold his glipizide. 9. Lactic acidosis. The patient has been resuscitated with fluid. We will trend until resolution. 10. Hyperlipidemia. Continue statin. 11. History of benign prostatic hyperplasia. Continue Flomax. 12. FEN. As per above, the patient will be on consistent carbohydrate diet and has received 1 liter of fluid. 13. DVT prophylaxis. He is ordered subcu heparin. 14. Code status: Mr. Whalen wishes to be a DNR and there is a MOLST on file from previous admission. 15. Disposition. Planned for observation for aforementioned conditions. PT and OT have been ordered to evaluate to see if the patient is safe to go home. Planned for discharge to home with support systems in place unless if there is acute concern in which case, he may benefit from a subacute rehab. TIME SPENT: Approximately 60 minutes were spent on this admission with more than half the time was spent [id number] with the patient and his family obtaining history and physical, performing physical examination, and reviewing the plan of care. Plan of care was also reviewed with my attending, Dr. Berta Alegria, who is in agreement. NARINDER TURNER NP [id number]/CPS #: [id number] PEPPER
[2018-08-03] MEDS ORDERED: Insulin LISPRO* 1 UNITS UNIT SUBCUT ONE (20:57)
[2018-08-03] MEDS: Atorvastatin* 10 MG TAB PO SCH (21:32)
[2018-08-03] MEDS: Metoprolol Tartrate TAB* 25 MG PO SCH (21:32)
[2018-08-04] MEDS: Heparin VIAL(*) 5000 UNITS/ML VIAL (FIVE THOUSAND) SUBCUT SCH ×3 (05:10→21:14)
[2018-08-04 05:50] LABS: ABS Basophils 0.1 10^3/ul (0-0.2); ABS Eosinophils 0.2 10^3/ul (0-0.6); ABS Lymphocytes 1.6 10^3/ul (1.0-4.8); ABS Monocytes 0.7 10^3/ul (0-0.8); ABS Nucleated RBC 0 10^3/ul; Eosinophil % 1.8 %; Hematocrit 32 % (42-52); Hemoglobin 10.3 g/dl (14.0-18.0); Lymphocyte % 13.8 %; Mean Corpuscular HGB Conc 33 g/dl (31-36); Mean Corpuscular Hemoglobin 30 pg (27-31); Mean Corpuscular Volume 92 fL (80-94); Mean Platelet Volume 6.6 fL (7.4-10.4); Nucleated Red Blood Cells % 0.1; Platelet Count 511 10^3/ul (150-450); Red Blood Count 3.46 10^6/ul (4.00-5.40); Red Cell Distribution Width 14 % (10.5-15); White Blood Count 11.7 10^3/ul (3.5-10.8)
[2018-08-04 06:14] LABS: EGFR Non-African American 38.1 (>60)
[2018-08-04] MEDS: Aspirin TAB* 325 MG PO SCH (08:40)
[2018-08-04] MEDS: Insulin LISPRO* 1 UNITS UNIT SUBCUT SCH ×4 (08:41→21:51)
[2018-08-04] MEDS: Folic Acid TAB* 1 MG PO SCH (08:41)
[2018-08-04] MEDS: Tamsulosin CAP* 0.4 MG PO SCH (08:41)
[2018-08-04] MEDS: Metoprolol Tartrate TAB* 25 MG PO SCH (08:41)
[2018-08-04] MEDS: Cyanocobalamin TAB* 500 MCG PO SCH (08:51)
--- NOTE | 2018-08-04 15:08 | PN ---
Subjective Date of Service: 08/04/18 Interval History: Patient seen and examined at bedside. Denies fever, chills, chest discomfort, N/ V/D. He reports that his dyspnea is improving and is on room air. We discussed getting a cardiac stress test and he does not want one. He is unsure what his baseline renal status is. We discussed code status, he would like to have a discussion with his son Naveed when he arrives later today. Tele: Sinus rhythm with PVCs, rate 80's Family History: Unchanged from Admission Social History: Unchanged from Admission Past Medical History: Unchanged from Admission Objective Active Medications: Acetaminophen (Tylenol Tab*) 650 mg PO Q4H PRN Reason: FEVER/PAIN Albuterol (Ventolin 2.5 Mg/3 Ml Neb.Юлия*) 2.5 mg INH Q4H PRN Reason: SOB/ WHEEZING Aspirin (Aspirin Tab*) 325 mg PO DAILY [facility] Atorvastatin Calcium (Lipitor*) 10 mg PO BEDTIME MANAS; Protocol Cyanocobalamin (Vitamin B12 Tab*) 1,000 mcg PO DAILY [facility] Dextrose (D50w Syringe 50 Ml*) 12.5 gm IV PUSH .FOR FS < 60 - SS PRN Reason: FS < 60 Folic Acid (Folvite Tab*) 1 mg PO DAILY [facility] Guaifenesin (Robitussin*) 5 ml PO Q4H PRN Reason: COUGH Heparin Sodium (Porcine) (Heparin Vial(*)) 5,000 units SUBCUT Q8HR MANAS Insulin Human Lispro (Humalog*) 0 units SUBCUT AC MANAS; Protocol Metoprolol Tartrate (Lopressor Tab*) 25 mg PO Q12HR [facility] Ondansetron HCl (Zofran Inj*) 4 mg IV Q6H PRN Reason: NAUSEA/VOMITING Tamsulosin HCl (Flomax Cap*) 0.8 mg PO DAILY [facility] Vital Signs - 8 hr 08/04/18 08/04/18 08/04/18 07:24 07:40 11:36 Temperature 98.3 F 97.3 F Pulse Rate 77 75 Respiratory 20 22 20 Rate Blood Pressure 106/55 95/45 (mmHg) O2 Sat by Pulse 99 94 Oximetry Oxygen Devices in Use Now: None Appearance: NAD, laying in bed Ears/Nose/Mouth/Throat: Mucous Membranes Moist Respiratory: Symmetrical Chest Expansion and Respiratory Effort, Clear to Auscultation - , diminished Cardiovascular: RRR, - - Systolic murmur heard best at the right upper sternal border Abdominal: NL Sounds; No Tenderness; No Distention Extremities: No Edema Skin: No Rash or Ulcers Neurological: Alert and Oriented x 3, NL Muscle Strength and Tone Lines/Tubes/Other Access: Clean, Dry and Intact Peripheral IV - site benign Nutrition: Taking PO's Result Diagrams: 08/04/18 05:38 08/04/18 05:38 Additional Lab and Data: Microbiology and Other Data: Microbiology 08/03/18 13:20 Stool Gross Appearance - Final Stool Assess/Plan/Problems-Billing Assessment: Mr. Whalen is a 88 yo male with PMH significant for systolic HF, CKD, CAD, DM2, HTN, HLD, BPH, and recent PNA who presented to the emergency room with shortness of breath with exertion, GINNY, elevated troponin and lactic acidosis. - Patient Problems (1) Dyspnea Code(s): R06.00 - DYSPNEA, UNSPECIFIED SNOMED Code(s): 890260539 Comment: - Improving - Suspect this is residual from his recent PNA (2) GINNY (acute kidney injury) Code(s): N17.9 - ACUTE KIDNEY FAILURE, UNSPECIFIED SNOMED Code(s): 37314381 Comment: - Creatinine improving, unclear baseline as no labs prior to 07/26 - Suspect this is pre-renal and secondary to dehydration and diarrhea - Received IVFs in the ED - Will recheck labs in the AM (3) Elevated troponin Code(s): R74.8 - ABNORMAL LEVELS OF OTHER SERUM ENZYMES SNOMED Code(s): 848649991 Comment: - Denies chest pain - Troponin has been trending down since admission; 0.28, 0.25, 0.21 - Echo on 07/26 with multiple regional wall motion abnormalities and EF 30% - Suspect demand ischemia in the setting of recent PNA (4) Diarrhea Code(s): R19.7 - DIARRHEA, UNSPECIFIED SNOMED Code(s): 71260401 Comment: - Suspect secondary to recent ABX use - Stool culture pending (5) Systolic heart failure Code(s): I50.20 - UNSPECIFIED SYSTOLIC (CONGESTIVE) HEART FAILURE SNOMED Code( s): 868462356 Comment: - Will ask cardiology to consult - Will start low dose Lasix - Daily weights and strict I+O's (6) Pulmonary HTN Code(s): I27.20 - PULMONARY HYPERTENSION, UNSPECIFIED SNOMED Code(s): 91623666 Comment: - Severe pulmonary HTN on echo today - Consider pulmonology consult in the AM (7) HTN (hypertension) Code(s): I10 - ESSENTIAL (PRIMARY) HYPERTENSION SNOMED Code(s): 04511781 Comment: - SBP 90-100's - Continue betablocker, will change from metoprolol to Coreg with CHF dx - Hold Lisinopril in the setting of GINNY (8) Lactic acidosis Code(s): E87.2 - ACIDOSIS SNOMED Code(s): 49206017 Comment: - Trending down (9) BPH (benign prostatic hyperplasia) Code(s): N40.0 - BENIGN PROSTATIC HYPERPLASIA WITHOUT LOWER URINRY TRACT SYMP SNOMED Code(s): 916863475 Comment: - Continue flomax (10) CAD (coronary artery disease) Code(s): I25.10 - ATHSCL HEART DISEASE OF [place] CORONARY ARTERY W/O ANG PCTRS SNOMED Code(s): 88884721 Comment: - Reported 4 stents (2001) - Former smoker (quit 18 years ago) - Will change metoprolol to Coreg in the setting of CHF (11) Diabetes mellitus Code(s): E11.9 - TYPE 2 DIABETES MELLITUS WITHOUT COMPLICATIONS SNOMED Code(s) : 32164445 Comment: - Glucose 180-280's - HgA1C was 7.1% on 07/28 - Continue Lispro sliding scale - Hold glipizide (12) HLD (hyperlipidemia) Code(s): E78.5 - HYPERLIPIDEMIA, UNSPECIFIED SNOMED Code(s): 91223543 Comment: - Continue atorvastatin (13) DVT prophylaxis Code(s): XMI7290 - SNOMED Code(s): 967576234 Comment: - HSQ (14) DNR (do not resuscitate) Comment: - MOSLT completed and placed on the chart Status and Disposition: OBV. Discharge to home when medically stable, suspect as early as the AM, but may require 2-3 day stay. Attending: Ofelia Cabezas
[2018-08-04] MEDS: Carvedilol TAB* 3.125 MG PO SCH (21:13)
[2018-08-04] MEDS: Atorvastatin* 10 MG TAB PO SCH (21:13)
[2018-08-05] MEDS: Heparin VIAL(*) 5000 UNITS/ML VIAL (FIVE THOUSAND) SUBCUT SCH ×3 (05:55→21:11)
[2018-08-05 05:58] LABS: ABS Basophils 0.1 10^3/ul (0-0.2); ABS Eosinophils 0.3 10^3/ul (0-0.6); ABS Lymphocytes 1.6 10^3/ul (1.0-4.8); ABS Monocytes 0.7 10^3/ul (0-0.8); ABS Neutrophils 9.9 10^3/ul (1.5-7.7); ABS Nucleated RBC 0 10^3/ul; Hematocrit 33 % (42-52); Hemoglobin 10.7 g/dl (14.0-18.0); Lymphocyte % 12.7 %; Mean Corpuscular HGB Conc 32 g/dl (31-36); Mean Corpuscular Hemoglobin 30 pg (27-31); Mean Corpuscular Volume 91 fL (80-94); Mean Platelet Volume 6.7 fL (7.4-10.4); Nucleated Red Blood Cells % 0; Platelet Count 532 10^3/ul (150-450); Red Blood Count 3.62 10^6/ul (4.00-5.40); Red Cell Distribution Width 14 % (10.5-15); White Blood Count 12.5 10^3/ul (3.5-10.8)
[2018-08-05] MEDS: Folic Acid TAB* 1 MG PO SCH (09:00)
[2018-08-05] MEDS: Furosemide TAB* 20 MG PO SCH (09:00)
[2018-08-05] MEDS: Cyanocobalamin TAB* 500 MCG PO SCH (09:01)
[2018-08-05] MEDS: Carvedilol TAB* 3.125 MG PO SCH ×2 (09:01→21:14)
[2018-08-05] MEDS: Insulin LISPRO* 1 UNITS UNIT SUBCUT SCH ×4 (09:01→21:13)
[2018-08-05] MEDS: Aspirin TAB* 325 MG PO SCH (09:01)
[2018-08-05] MEDS: Tamsulosin CAP* 0.4 MG PO SCH (09:06)
--- NOTE | 2018-08-05 11:50 | PN ---
Subjective Date of Service: 08/05/18 Interval History: Patient seen and examined at bedside. Denies fever, chills, shortness of breath , chest discomfort, N/V/D. He states that he has dyspnea with exertion. Declined stress testing. Tele: Sinus rhythm - sinus arrhythmia, rate 80's with PVCs. Family History: Unchanged from Admission Social History: Unchanged from Admission Past Medical History: Unchanged from Admission Objective Active Medications: Acetaminophen (Tylenol Tab*) 650 mg PO Q4H PRN Reason: FEVER/PAIN Albuterol (Ventolin 2.5 Mg/3 Ml Neb.Юлия*) 2.5 mg INH Q4H PRN Reason: SOB/ WHEEZING Aspirin (Aspirin Tab*) 325 mg PO DAILY [facility] Atorvastatin Calcium (Lipitor*) 10 mg PO BEDTIME [facility]; Protocol Carvedilol (Coreg Tab*) 3.125 mg PO BID [facility] Cyanocobalamin (Vitamin B12 Tab*) 1,000 mcg PO DAILY [facility] Dextrose (D50w Syringe 50 Ml*) 12.5 gm IV PUSH .FOR FS < 60 - SS PRN Reason: FS < 60 Folic Acid (Folvite Tab*) 1 mg PO DAILY [facility] Furosemide (Lasix Tab*) 20 mg PO DAILY [facility] Guaifenesin (Robitussin*) 5 ml PO Q4H PRN Reason: COUGH Heparin Sodium (Porcine) (Heparin Vial(*)) 5,000 units SUBCUT Q8HR [facility] Insulin Human Lispro (Humalog*) 0 units SUBCUT ACHS [facility]; Protocol Ondansetron HCl (Zofran Inj*) 4 mg IV Q6H PRN Reason: NAUSEA/VOMITING Tamsulosin HCl (Flomax Cap*) 0.8 mg PO DAILY [facility] Vital Signs - 8 hr 08/05/18 08/05/18 08/05/18 07:17 11:13 11:16 Temperature 98.0 F 98.4 F 98.4 F Pulse Rate 81 78 77 Respiratory 19 18 20 Rate Blood Pressure 122/56 (mmHg) O2 Sat by Pulse 95 94 96 Oximetry 08/05/18 11:32 Temperature Pulse Rate 77 Respiratory Rate Blood Pressure 101/48 (mmHg) O2 Sat by Pulse Oximetry Oxygen Devices in Use Now: None Appearance: NAD, laying in bed Ears/Nose/Mouth/Throat: Mucous Membranes Moist Respiratory: Symmetrical Chest Expansion and Respiratory Effort, - - Crackles in the left base. Cardiovascular: RRR Extremities: - - 1+ bilateral LE edema Skin: No Rash or Ulcers Neurological: Alert and Oriented x 3, NL Muscle Strength and Tone Lines/Tubes/Other Access: Clean, Dry and Intact Peripheral IV - site benign Nutrition: Taking PO's Result Diagrams: 08/05/18 05:27 08/05/18 05:27 Additional Lab and Data: Microbiology and Other Data: Microbiology 08/03/18 13:20 Stool Gross Appearance - Final Stool Assess/Plan/Problems-Billing Assessment: Mr. Whalen is a 88 yo male with PMH significant for systolic HF, CKD, CAD, DM2, HTN, HLD, BPH, and recent PNA who presented to the emergency room with shortness of breath with exertion, GINNY, elevated troponin and lactic acidosis. - Patient Problems (1) Dyspnea Code(s): R06.00 - DYSPNEA, UNSPECIFIED SNOMED Code(s): 605031070 Comment: - Improving - Suspect this is residual from his recent PNA and CHF, ACS is also in the diff dx. (2) GINNY (acute kidney injury) Code(s): N17.9 - ACUTE KIDNEY FAILURE, UNSPECIFIED SNOMED Code(s): 55987892 Comment: - Creatinine improving, unclear baseline as no labs prior to 07/26 - Suspect this is pre-renal and secondary to dehydration and diarrhea - Received IVFs in the ED (3) Elevated troponin Code(s): R74.8 - ABNORMAL LEVELS OF OTHER SERUM ENZYMES SNOMED Code(s): 034071902 Comment: - Denies chest pain - Troponin has been trending down since admission; 0.28, 0.25, 0.21 - Echo on 07/26 with multiple regional wall motion abnormalities and EF 30% - Suspect demand ischemia in the setting of recent PNA and CHF - Further recommendations based on Cardiology consult (4) Diarrhea Code(s): R19.7 - DIARRHEA, UNSPECIFIED SNOMED Code(s): 29052855 Comment: - Suspect secondary to recent ABX use - Stool culture pending (5) Systolic heart failure Code(s): I50.20 - UNSPECIFIED SYSTOLIC (CONGESTIVE) HEART FAILURE SNOMED Code( s): 030000366 Comment: - Echo on 07/26, EF 30% - Cardiology consult, pending - Continue low dose Lasix and Coreg - Daily weights and strict I+O's (6) Pulmonary HTN Code(s): I27.20 - PULMONARY HYPERTENSION, UNSPECIFIED SNOMED Code(s): 15436553 Comment: - Severe pulmonary HTN on echo - Pulmonology consult, pending (7) HTN (hypertension) Code(s): I10 - ESSENTIAL (PRIMARY) HYPERTENSION SNOMED Code(s): 20711240 Comment: - SBP 100-120's - Continue Coreg - Hold Lisinopril in the setting of GINNY (8) Lactic acidosis Code(s): E87.2 - ACIDOSIS SNOMED Code(s): 66027522 Comment: - Trending down (9) BPH (benign prostatic hyperplasia) Code(s): N40.0 - BENIGN PROSTATIC HYPERPLASIA WITHOUT LOWER URINRY TRACT SYMP SNOMED Code(s): 645054966 Comment: - Continue flomax (10) CAD (coronary artery disease) Code(s): I25.10 - ATHSCL HEART DISEASE OF [place] CORONARY ARTERY W/O ANG PCTRS SNOMED Code(s): 28894566 Comment: - Reported 4 stents (2001) - Former smoker (quit 18 years ago) - Continue Coreg (changed from metoprolol in the setting of CHF) (11) Diabetes mellitus Code(s): E11.9 - TYPE 2 DIABETES MELLITUS WITHOUT COMPLICATIONS SNOMED Code(s) : 93808251 Comment: - Glucose 180-310's - HgA1C was 7.1% on 07/28 - Continue Lispro sliding scale - Hold glipizide (12) HLD (hyperlipidemia) Code(s): E78.5 - HYPERLIPIDEMIA, UNSPECIFIED SNOMED Code(s): 93719170 Comment: - Continue atorvastatin (13) DVT prophylaxis Code(s): MDL2050 - SNOMED Code(s): 983687885 Comment: - HSQ (14) DNR (do not resuscitate) Comment: - MOSLT completed and placed on the chart Status and Disposition: OBV to Inpatient. Discharge to home when medically stable, suspect as early as the AM, but may require 2-3 day stay. Attending: Darrell Chaves
--- NOTE | 2018-08-05 20:43 | CONS ---
CARDIOLOGY CONSULTATION: DATE OF CONSULT: 08/05/18 INDICATION FOR CONSULTATION: Shortness of breath, history of coronary artery disease. HISTORY OF PRESENT ILLNESS: The patient is an 88-year-old gentleman with a history of coronary artery disease, mild renal insufficiency, congestive heart failure, who has been to the hospital because of shortness of breath. The patient was admitted to the hospital at the end of June with community- acquired pneumonia. He was treated with antibiotics and discharged home. He was readmitted to the hospital yesterday because of increased shortness of breath. In speaking with the patient, he does state that he has been having increasing dyspnea on exertion for the past couple of months. He says that this summer, he had noticed some decrease in his exercise tolerance. The patient had been very busy taking care of his ill . She at the beginning of May. Since then, he has noticed that his overall exertion tolerance has decreased. He says that he gets up and he walks around his house and then has to sit down to catch his breath. He denies any anginal type symptoms. He denies any orthopnea. He denies any palpitations. No lightheadedness, dizziness , or syncope. The patient was admitted to the hospital now because of his shortness of breath. He has a minimally elevated troponin level at 0.2. The admissions advisor has shown ventricular bigeminy, but no sustained arrhythmias. The patient did get an echocardiogram during his initial hospitalization back at the end of June, which demonstrated moderately reduced LV systolic function, ejection fraction of 30% with focal wall motion abnormalities. He did have thickening of the aortic valve with a mean gradient of 10 mmHg, but this could be under estimating the severity of the aortic stenosis. He had moderate mitral regurgitation and prgaawwc-if-ryswso pulmonary hypertension. PAST MEDICAL HISTORY: Significant for coronary artery disease, cardiac catheterization in 2001 revealed 3-vessel coronary artery disease. He was transferred up to [facility] for intervention and possible bypass. I am unclear as to what happened after his catheterization here at [facility] in 2001. The patient gets all of his medical care at the [place]. Other past medical history is hypertension, hyperlipidemia, diabetes. OUTPATIENT MEDICATIONS: 1. Aspirin 325 a day. 2. Folic acid 1 mg a day. 3. Glucotrol 5 mg a day. 4. Guaifenesin 400 mg as needed. 5. Pravachol 40 mg a day. 6. Flomax 0.8 mg a day. 7. Lasix 40 mg a day. 8. Metoprolol 25 mg every 12 hours. His current medications are the same except that his beta satya has been changed to Coreg 3.125 mg b.i.d. ALLERGIES: No known drug allergies. FAMILY HISTORY: Noncontributory. SOCIAL HISTORY: He is . He denies tobacco or alcohol use. He lives in his own house. He is retired. REVIEW OF SYSTEMS: Positive for shortness of breath. Negative for fevers and chills. Negative for changes in weight. Negative for changes in bowel or bladder habit. PHYSICAL EXAM: Height is 5 feet 6 inches, weight is 177 pounds, temperature 98.4, heart rate is 77, blood pressure 122/56, respiratory rate is 18, oxygen saturation 96% on room air. Sclerae anicteric. Oropharynx is pink without erythema. Carotids are 2+ without any bruits. JVD is normal. Thyroid is normal. Cardiac Exam: S1, S2, with a 1/6 systolic ejection murmur heard best at the right upper sternal border. PMI is displaced laterally. Lungs have mild rhonchi. There is some mild rales at the bases. There is no dullness to percussion. Abdomen is soft, nontender, nondistended with normoactive bowel sounds. Extremities show no edema. He has 2+ pulses throughout. The patient is awake, alert, and oriented. DIAGNOSTIC STUDIES/LAB DATA: White count 12.5, hemoglobin 10, hematocrit 33, platelet count 532. Chemistries within normal limits. BUN 36, creatinine 1.5 which is about his baseline. BNP was 303. AST and ALT are normal. IMPRESSION: This is an 88-year-old gentleman who is admitted to the hospital because of shortness of breath. The patient did have community-acquired pneumonia back at the end of June for which he finished a complete antibiotic course. In speaking with the patient, his major complaint is just shortness of breath and dyspnea. The patient does have zflvsyki-be-gtudjb left ventricular dysfunction. His ejection fraction is 30% with focal wall motion abnormalities. RECOMMENDATIONS: For now, my recommendation is to maximize medical therapy. I agree with switching from metoprolol to Coreg. The patient will also benefit from an MARLEN or an ARB for his ischemic cardiomyopathy. The patient will continue on low dose diuretics. The patient will have close followup of his laboratory studies including his BUN and creatinine. I will discuss with the patient and his family as to whether further cardiac workup would be appropriate, whether he would want a stress test for evaluation of progression of his coronary artery disease. [id number]/CPS #: [id number] MTDD
--- NOTE | 2018-08-05 21:00 | CONS ---
PULMONARY CONSULTATION REPORT: DATE OF CONSULT: 08/05/18 CONSULTATION REQUESTED BY: Loly Waggoner NP REASON FOR CONSULT: Evaluation of pulmonary hypertension. HISTORY OF PRESENT ILLNESS: The patient is an 88-year-old male with history of recent pneumonia, requiring recent hospitalization, history of systolic heart failure, acute on chronic renal disease during recent hospitalization. The patient was discharged on 07/31/18, after he had been treated for community- acquired pneumonia with associated sepsis, systolic heart failure, and acute on chronic renal failure. The patient had improvement in his symptoms and was discharged home. He presents for evaluation of worsening shortness of breath and fatigue. Further evaluation revealed significant systolic heart failure, which is being treated. The patient had echocardiogram that showed evidence of yrfdwesx-yo-wmcnsx pulmonary hypertension and pulmonary consultation was requested. The patient was seen and examined at bedside. The patient reports slight improvement in his shortness of breath. The patient reports that he would get winded with minimal movement. Denies significant cough or sputum production. Cough is mostly dry in nature when it happens. Denies chest pain, palpitations, or dizziness. Denies lower extremity edema. Reports diarrhea. Denies nausea or vomiting. Reports increased urination. Denies dysuria. Denies generalized weakness, trouble swallowing, joint or muscle aches. Denies any rash. PAST MEDICAL HISTORY: 1. Recent community-acquired pneumonia. 2. Systolic congestive heart failure with recent acute exacerbation. 3. Acute on chronic renal disease. 4. History of hypoxemic respiratory failure and sepsis during recent hospitalization. 5. Coronary artery disease, status post stent placement. 6. Type 2 diabetes. 7. Hypertension. 8. Dyslipidemia. 9. Prostate hyperplasia. MEDICATIONS AT HOME: 1. Guaifenesin. 2. Glipizide. 3. Flomax. 4. Pravastatin. 5. Nitroglycerin. 6. Metoprolol. 7. Lisinopril. 8. Furosemide. 9. Folic acid. 10. Vitamin B12. 11. Aspirin. 12. Augmentin. ALLERGIES: No known drug allergies. FAMILY HISTORY: Two brothers with cancer. SOCIAL HISTORY: Former smoker, quit approximately 18 years ago. Occasional alcohol intake and denies drug usage. Lives alone at home. REVIEW OF SYSTEMS: All 14 systems were reviewed as per HPI. Other findings that were not mentioned in HPI include history of snoring, disruptive sleep and nocturia, and daytime fatigue. PHYSICAL EXAM: The patient in bed, in no apparent distress. Vital Signs: Temperature 97.6, pulse 78 beats per minute, respiratory rate 16 per minute, O2 sat 93% on room air, blood pressure 114/54. HEENT: Pupils equal, reactive to light. Mucous membranes moist. Lungs: Diminished at bases and expiratory crackles at left base. Cardiovascular: S1, S2 present, regular. Grade II/ systolic murmur. Abdomen: Soft, nontender, nondistended. Bowel sounds present. Extremities: Normal range of motion. No edema. Neuro: No focal defects. Alert, awake, oriented x3. Skin: No rash. DIAGNOSTIC STUDIES/LAB DATA: WBC count 12.5, hemoglobin 10.7, hematocrit 33, and platelet count 532. Sodium 140, potassium 5, chloride 104, bicarb 30, BUN 36, creatinine 1.57, glucose 185, calcium 9.8. Influenza A and B negative. Chest x-ray was personally reviewed by me, evidence of pulmonary vascular congestion bilaterally, improving infiltrate in the left lung, small pleural effusion on the left side. Echocardiogram from 07/26/18, showed evidence of low ejection fraction with EF of 30%, dilated left atrium, ahoq-ov-fctwxmdq aortic stenosis, and evidence of ywmegmaw-op-yahjxi pulmonary hypertension. IMPRESSION AND RECOMMENDATIONS: 88-year-old male with evidence of pulmonary hypertension, which is moderate to severe in the setting of recent pneumonia; acute on chronic systolic heart failure; valvular abnormalities; pulmonary hypertension is likely to be group 2, however, cannot rule out group 3 pulmonary hypertension; does have body habitus concerning for possible obstructive sleep apnea. Recommend optimization of underlying cardiac condition. Also, recommend overnight oximetry for re-evaluation. I do not think he would have group 1 pulmonary hypertension at this age. No other workup is necessary at this time for evaluation of pulmonary hypertension. Further recommendations pending overnight oximetry results. Thank you for allowing me to participate in the care of your patient. Will follow up with you. Above recommendations were discussed with Loly Waggoner. [id number]/CPS #: [id number] PEPPER
[2018-08-05] MEDS: Atorvastatin* 10 MG TAB PO SCH (21:15)
[2018-08-06] MEDS: Heparin VIAL(*) 5000 UNITS/ML VIAL (FIVE THOUSAND) SUBCUT SCH ×3 (05:34→21:37)
[2018-08-06 06:06] LABS: ABS Basophils 0.1 10^3/ul (0-0.2); ABS Eosinophils 0.2 10^3/ul (0-0.6); ABS Monocytes 0.7 10^3/ul (0-0.8); ABS Neutrophils 8.8 10^3/ul (1.5-7.7); ABS Nucleated RBC 0 10^3/ul; Hematocrit 33 % (42-52); Hemoglobin 10.9 g/dl (14.0-18.0); Lymphocyte % 16.9 %; Mean Corpuscular HGB Conc 33 g/dl (31-36); Mean Corpuscular Hemoglobin 30 pg (27-31); Mean Corpuscular Volume 91 fL (80-94); Mean Platelet Volume 6.6 fL (7.4-10.4); Nucleated Red Blood Cells % 0; Platelet Count 544 10^3/ul (150-450); Red Blood Count 3.64 10^6/ul (4.00-5.40); Red Cell Distribution Width 14 % (10.5-15); White Blood Count 11.8 10^3/ul (3.5-10.8)
[2018-08-06 07:29] LABS: EGFR Non-African American 39.9 (>60)
[2018-08-06] MEDS: Lisinopril TAB* 5 MG PO SCH (08:45)
[2018-08-06] MEDS: Furosemide TAB* 20 MG PO SCH (08:45)
[2018-08-06] MEDS: Cyanocobalamin TAB* 500 MCG PO SCH (08:45)
[2018-08-06] MEDS: Carvedilol TAB* 3.125 MG PO SCH ×2 (08:45→21:32)
[2018-08-06] MEDS: Folic Acid TAB* 1 MG PO SCH (08:45)
[2018-08-06] MEDS: Insulin LISPRO* 1 UNITS UNIT SUBCUT SCH ×4 (08:45→21:34)
[2018-08-06] MEDS: Aspirin TAB* 325 MG PO SCH (08:45)
[2018-08-06] MEDS: Tamsulosin CAP* 0.4 MG PO SCH (08:46)
[2018-08-06] MEDS ORDERED: Aminophylline IV* 25 MG/ML 10 ML VIAL ONE (10:28)
[2018-08-06] MEDS ORDERED: Regadenoson* 0.4 MG/5 ML SYRINGE ONE (10:28)
--- NOTE | 2018-08-06 20:01 | PN ---
Subjective Date of Service: 08/06/18 Interval History: Pt seen and examined. Meds and labs reviewed. CC: N/A ROS: Denied SHANKS/dizziness, F/C, N/V, CP, SOB, increased cough, sputum production , abd pain, diarrhea, constipation, dysuria, myalgias, arthralgias, throat pain , and new skin lesions. The rest of the 14 point ROS are unremarkable. PHYSICAL EXAM: GEN APPEARANCE: Awake, not in acute distress HEENT: NC/AT, PERRLA, moist oral mucosa, (-) throat erythema NECK: Soft, supple, (-) cervical LAD, (-)JVD HEART: S1S2 WNL, RRR, No MRG CHEST: CTA, BL, GAE, No W/R/R ABD: Soft, ND/NT, NABS 4x Q EXT: No C/C/E SKIN: Warm to touch PSYCH: No active psychosis, hallucinations, depression, SI/HI Family History: Unchanged from Admission Social History: Unchanged from Admission Past Medical History: Unchanged from Admission Objective Active Medications: Acetaminophen (Tylenol Tab*) 650 mg PO Q4H PRN PRN Reason: FEVER/PAIN Albuterol (Ventolin 2.5 Mg/3 Ml Neb.Юлия*) 2.5 mg INH Q4H PRN PRN Reason: SOB/WHEEZING Aspirin (Aspirin Tab*) 325 mg PO DAILY [facility] Last Admin: 08/06/18 08:45 Dose: Not Given Atorvastatin Calcium (Lipitor*) 10 mg PO BEDTIME [facility]; Protocol Last Admin: 08/05/18 21:15 Dose: 10 mg Carvedilol (Coreg Tab*) 3.125 mg PO BID [facility] Last Admin: 08/06/18 08:45 Dose: Not Given Cyanocobalamin (Vitamin B12 Tab*) 1,000 mcg PO DAILY [facility] Last Admin: 08/06/18 08:45 Dose: Not Given Dextrose (D50w Syringe 50 Ml*) 12.5 gm IV PUSH .FOR FS < 60 - SS PRN PRN Reason: FS < 60 Folic Acid (Folvite Tab*) 1 mg PO DAILY [facility] Last Admin: 08/06/18 08:45 Dose: Not Given Furosemide (Lasix Tab*) 20 mg PO DAILY [facility] Last Admin: 08/06/18 08:45 Dose: Not Given Guaifenesin (Robitussin*) 5 ml PO Q4H PRN PRN Reason: COUGH Heparin Sodium (Porcine) (Heparin Vial(*)) 5,000 units SUBCUT Q8HR [facility] Last Admin: 08/06/18 13:50 Dose: 5,000 units Insulin Human Lispro (Humalog*) 0 units SUBCUT ACHS [facility]; Protocol Last Admin: 08/06/18 16:45 Dose: 1 unit Lisinopril (Prinivil Tab*) 5 mg PO DAILY [facility] Last Admin: 08/06/18 08:45 Dose: Not Given Ondansetron HCl (Zofran Inj*) 4 mg IV Q6H PRN PRN Reason: NAUSEA/VOMITING Tamsulosin HCl (Flomax Cap*) 0.8 mg PO DAILY [facility] Last Admin: 08/06/18 08:46 Dose: Not Given Vital Signs - 8 hr 08/06/18 08/06/18 08/06/18 12:10 15:43 19:20 Temperature 97.6 F 97.6 F Pulse Rate 71 57 38 Respiratory 18 16 Rate Blood Pressure 115/52 124/63 (mmHg) O2 Sat by Pulse 100 96 Oximetry 08/06/18 19:55 Temperature Pulse Rate 87 Respiratory Rate Blood Pressure (mmHg) O2 Sat by Pulse Oximetry Oxygen Devices in Use Now: Nasal Cannula Result Diagrams: 08/06/18 05:42 08/06/18 05:42 Additional Lab and Data: Microbiology and Other Data: Microbiology 08/03/18 13:20 Stool Gross Appearance - Final Stool Assess/Plan/Problems-Billing Assessment: Mr. Whalen is a 88 yo male with PMH significant for systolic HF, CKD, CAD, DM2, HTN, HLD, BPH, and recent PNA who presented to the emergency room with shortness of breath with exertion, GINNY, elevated troponin and lactic acidosis. - Patient Problems (1) Dyspnea Current Visit: Yes Status: Acute Code(s): R06.00 - DYSPNEA, UNSPECIFIED SNOMED Code(s): 897242024 Comment: - Improving - Likely due to CHF exacerbation given pulmonary edema on CXR -Continue Lasix -High-risk stress test---d/w Dr. Parekh and given fixed defect, no intervention at this time, i.e., PCI (2) GINNY (acute kidney injury) Current Visit: Yes Status: Acute Code(s): N17.9 - ACUTE KIDNEY FAILURE, UNSPECIFIED SNOMED Code(s): 35749709 Comment: - Creatinine improving, unclear baseline as no labs prior to 07/26 - Likely due to CHF exacerbation (3) Elevated troponin Current Visit: Yes Status: Acute Code(s): R74.8 - ABNORMAL LEVELS OF OTHER SERUM ENZYMES SNOMED Code(s): 859989487 Comment: - Denies chest pain - Troponin has been trending down since admission; 0.28, 0.25, 0.21 - Echo on 07/26 with multiple regional wall motion abnormalities and EF 30% - Suspect demand ischemia in the setting of recent PNA and CHF - Further recommendations based on Cardiology consult (4) Diarrhea Current Visit: Yes Status: Acute Code(s): R19.7 - DIARRHEA, UNSPECIFIED SNOMED Code(s): 57315844 Comment: - Suspect secondary to recent ABX use - Stool culture pending (5) Systolic heart failure Current Visit: Yes Status: Acute Code(s): I50.20 - UNSPECIFIED SYSTOLIC ( CONGESTIVE) HEART FAILURE SNOMED Code(s): 260767141 Comment: - Echo on 07/26, EF 30% - Cardiology consult, pending - Continue low dose Lasix and Coreg - Daily weights and strict I+O's (6) Pulmonary HTN Current Visit: Yes Status: Acute Code(s): I27.20 - PULMONARY HYPERTENSION, UNSPECIFIED SNOMED Code(s): 14727430 Comment: - Severe pulmonary HTN on echo - Pulmonology consult, pending (7) HTN (hypertension) Current Visit: Yes Status: Acute Code(s): I10 - ESSENTIAL (PRIMARY) HYPERTENSION SNOMED Code(s): 93544366 Comment: - SBP 100-120's - Continue Coreg - Hold Lisinopril in the setting of GINNY (8) Diabetes mellitus Current Visit: Yes Status: Chronic Code(s): E11.9 - TYPE 2 DIABETES MELLITUS WITHOUT COMPLICATIONS SNOMED Code(s): 78692263 Comment: - Glucose 180-310's - HgA1C was 7.1% on 07/28 - Continue Lispro sliding scale - Hold glipizide (9) HLD (hyperlipidemia) Current Visit: No Status: Chronic Code(s): E78.5 - HYPERLIPIDEMIA, UNSPECIFIED SNOMED Code(s): 71702060 Comment: - Continue atorvastatin (10) DVT prophylaxis Current Visit: Yes Status: Acute Code(s): ALL3329 - SNOMED Code(s): 030362933 Comment: - HSQ Status and Disposition: -Possible D/C in AM -For ambulatory sats in AM---pt mentions hes on 1L NC at home and will ambulate at this level
[2018-08-06] MEDS: Atorvastatin* 10 MG TAB PO SCH (21:32)
[2018-08-07] MEDS ORDERED: diPHENhydraMINE PO* 25 MG PO ONE (04:24)
[2018-08-07] MEDS: Heparin VIAL(*) 5000 UNITS/ML VIAL (FIVE THOUSAND) SUBCUT SCH ×3 (04:55→21:46)
[2018-08-07] MEDS: Insulin LISPRO* 1 UNITS UNIT SUBCUT SCH ×4 (07:51→21:46)
[2018-08-07] MEDS: Carvedilol TAB* 3.125 MG PO SCH (07:51)
[2018-08-07] MEDS: Folic Acid TAB* 1 MG PO SCH (07:51)
[2018-08-07] MEDS: Cyanocobalamin TAB* 500 MCG PO SCH (07:51)
[2018-08-07] MEDS: Aspirin TAB* 325 MG PO SCH (07:51)
[2018-08-07] MEDS: Lisinopril TAB* 5 MG PO SCH (07:51)
[2018-08-07] MEDS: Furosemide TAB* 20 MG PO SCH (07:51)
[2018-08-07] MEDS: Tamsulosin CAP* 0.4 MG PO SCH (07:51)
--- NOTE | 2018-08-07 10:50 | PN ---
<Katey Blevins - Last Filed: 08/07/18 10:42> Subjective Date of Service: 08/07/18 - severe LV dysfuntion, ICM, CAD Interval History: I had the pleasure seeing Mr. Whalen today who was accompanied by his son who was in the room. The patient states he has been doing well and has been ambulating the halls with no difficulty. He reports increased urination and doesn't appreciate improved breathing ability however, his son who lives next door to the patient states that over the weekend the patient was barely able to ambulate 50 feet before having to stop due to SOB. The patient today physically ambulated 100 feet with no difficulty with my help and his son. He denies chest pain, palpitations, sensation of heart racing, edema, dizziness or syncope. Medications Active Medications: Acetaminophen (Tylenol Tab*) 650 mg PO Q4H PRN PRN Reason: FEVER/PAIN Albuterol (Ventolin 2.5 Mg/3 Ml Neb.Юлия*) 2.5 mg INH Q4H PRN PRN Reason: SOB/WHEEZING Aspirin (Aspirin Tab*) 325 mg PO DAILY [facility] Last Admin: 08/07/18 07:51 Dose: 325 mg Atorvastatin Calcium (Lipitor*) 10 mg PO BEDTIME [facility]; Protocol Last Admin: 08/06/18 21:32 Dose: 10 mg Carvedilol (Coreg Tab*) 6.25 mg PO BID [facility] Cyanocobalamin (Vitamin B12 Tab*) 1,000 mcg PO DAILY [facility] Last Admin: 08/07/18 07:51 Dose: 1,000 mcg Dextrose (D50w Syringe 50 Ml*) 12.5 gm IV PUSH .FOR FS < 60 - SS PRN PRN Reason: FS < 60 Folic Acid (Folvite Tab*) 1 mg PO DAILY [facility] Last Admin: 08/07/18 07:51 Dose: 1 mg Furosemide (Lasix Tab*) 20 mg PO DAILY [facility] Last Admin: 08/07/18 07:51 Dose: 20 mg Guaifenesin (Robitussin*) 5 ml PO Q4H PRN PRN Reason: COUGH Heparin Sodium (Porcine) (Heparin Vial(*)) 5,000 units SUBCUT Q8HR [facility] Last Admin: 08/07/18 04:55 Dose: 5,000 units Insulin Human Lispro (Humalog*) [address] [facility]; Protocol Last Admin: 08/07/18 07:51 Dose: 2 unit Lisinopril (Prinivil Tab*) 5 mg PO DAILY [facility] Last Admin: 08/07/18 07:51 Dose: 5 mg Ondansetron HCl (Zofran Inj*) 4 mg IV Q6H PRN PRN Reason: NAUSEA/VOMITING Tamsulosin HCl (Flomax Cap*) 0.8 mg PO DAILY [facility] Last Admin: 08/07/18 07:51 Dose: 0.8 mg Objective Vital Signs: Temp Pulse Resp BP Pulse Ox 97.7 F 84 20 118/48 95 08/07/18 07:35 08/07/18 07:49 08/07/18 07:35 08/07/18 07:35 08/07/18 07:35 Oxygen Devices in Use Now: None, Nasal Cannula Eyes: No Scleral Icterus, PERRLA Ears/Nose/Mouth/Throat: NL Teeth, Lips, Gums, Clear Oropharnyx, Mucous Membranes Moist Neck: NL Appearance and Movements; NL JVP, Trachea Midline, No Thyroid Enlargement, Masses Respiratory: Clear to Auscultation - however breath sound are diminished throughout., - Cardiovascular: NL Sounds; No Murmurs; No JVD, - - Normal S1, S2 RRR, Grade 3/6 aortic valve murmur, Grade 3/5 diastolic mitral murmur, no rub or gallop Abdominal: NL Sounds; No Tenderness; No Distention Lymphatic: No Cervical Adenopathy Skin: No Rash or Ulcers Neurological: Alert and Oriented x 3 Lines/Tubes/Other Access: Clean, Dry and Intact Peripheral IV Laboratory Results: 08/06/18 05:42 08/06/18 05:42 Total Bilirubin 0.40 mg/dL (0.2-1.0) 08/03/18 09:39 AST 32 U/L (13-39) 08/03/18 09:39 ALT 104 U/L (7-52) H 08/03/18 09:39 Alkaline Phosphatase 148 U/L (34-104) H 08/03/18 09:39 B-Natriuretic Peptide 303 pg/mL (<=100) H 08/03/18 09:39 Total Protein 7.0 g/dL (6.4-8.9) 08/03/18 09:39 Albumin 3.1 g/dL (3.2-5.2) L 08/03/18 09:39 Globulin 3.9 g/dL (2-4) 08/03/18 09:39 Albumin/Globulin Ratio 0.8 (1-3) L 08/03/18 09:39 08/03/18 08/03/18 08/03/18 09:39 13:07 16:17 Troponin I 0.28 H* 0.25 H* 0.21 H* Laboratory Results - last 24 hr 08/06/18 08/06/18 08/06/18 11:20 16:16 21:09 POC Glucose (mg/dL) 220 H 140 H 196 H 08/07/18 07:18 POC Glucose (mg/dL) 164 H Diagnostic Imaging: Lexiscan Stress Test 08/06/2018; LVEF 26% with fixed defect involving inferior lateral ventricular wall extending to the apex of the heart. ecg portion was non diagnostic. Telemetry; Sinus rhythm with frequent PACs. EKG Data: none to review for today. Assessment/Plan #1 Newly diagnosed severe LV dysfunction; Likely ICM LVEF in 2001 before coronary PCI was 40%. NYHA class 2-3 stage C. Appears compensated today on Lasix 20mg PO daily. HR is 70-80's thus will increase coreg to 6.25mg PO BID. Continue Lisinopril 5mg/day. Would caution increasing ACEI given concern for possible low flow gradient. breathing ability has improved. He is interested in lifevest thus would recommend Lifevest. will update BMP #2 Mild to moderate ; mean gradient 10, DI not reported and LVEF 30%. unable to r/o low flow gradient. he appears stable and is compensated. #3 troponinemia; Troponin peaked at .28, he denies chest pain. He previously underwent PCI in 2001 at [facility]. Stress test revealed fixed inferolateral defect extending to apex. Will treat medically. He is on ASA 325mg /day will reduce to 81/day. continue Coreg therapy. Increase Lipitor to 40mg PO QHS. He is not experiencing angina. #4 Moderate to severe pulmonary HTN; RVSP 63, on lasix. defer to Dr. Anglin who ordered overnight oximetry. #5 h/o CKD; Will update labs. would like to place patient on Aldactone in the future if he could tolerate it. #6 Disposition; pending course. Attending: Marielos Carrillo <Marielos Carrillo - Last Filed: 08/07/18 18:50> Medications Active Medications: Acetaminophen (Tylenol Tab*) 650 mg PO Q4H PRN PRN Reason: FEVER/PAIN Albuterol (Ventolin 2.5 Mg/3 Ml Neb.Юлия*) 2.5 mg INH Q4H PRN PRN Reason: SOB/WHEEZING Aspirin (Aspirin 81 Mg Chew Tab*) 81 mg PO DAILY [facility] Atorvastatin Calcium (Lipitor*) 40 mg PO 2100 [facility] Carvedilol (Coreg Tab*) 6.25 mg PO BID [facility] Cyanocobalamin (Vitamin B12 Tab*) 1,000 mcg PO DAILY [facility] Last Admin: 08/07/18 07:51 Dose: 1,000 mcg Dextrose (D50w Syringe 50 Ml*) 12.5 gm IV PUSH .FOR FS < 60 - SS PRN PRN Reason: FS < 60 Folic Acid (Folvite Tab*) 1 mg PO DAILY [facility] Last Admin: 08/07/18 07:51 Dose: 1 mg Furosemide (Lasix Tab*) 20 mg PO DAILY [facility] Last Admin: 08/07/18 07:51 Dose: 20 mg Guaifenesin (Robitussin*) 5 ml PO Q4H PRN PRN Reason: COUGH Heparin Sodium (Porcine) (Heparin Vial(*)) 5,000 units SUBCUT Q8HR [facility] Last Admin: 08/07/18 13:08 Dose: 5,000 units Insulin Human Lispro (Humalog*) [address] [facility]; Protocol Last Admin: 08/07/18 17:11 Dose: 4 unit Lisinopril (Prinivil Tab*) 5 mg PO DAILY [facility] Last Admin: 08/07/18 07:51 Dose: 5 mg Nystatin (Nystatin Top Powder*) 1 applic TOPICAL TID [facility] Last Admin: 08/07/18 13:08 Dose: 1 applic Ondansetron HCl (Zofran Inj*) 4 mg IV Q6H PRN PRN Reason: NAUSEA/VOMITING Tamsulosin HCl (Flomax Cap*) 0.8 mg PO DAILY [facility] Last Admin: 08/07/18 07:51 Dose: 0.8 mg Tramadol HCl (Ultram*) 50 mg PO Q6H PRN PRN Reason: Breakthrough pain Last Admin: 08/07/18 17:12 Dose: 50 mg Objective Vital Signs: Temp Pulse Resp BP Pulse Ox 98.1 F 86 16 101/46 97 08/07/18 15:06 08/07/18 15:20 08/07/18 17:12 08/07/18 15:06 08/07/18 15:06 Laboratory Results: 08/06/18 05:42 08/06/18 05:42 Total Bilirubin 0.40 mg/dL (0.2-1.0) 08/03/18 09:39 AST 32 U/L (13-39) 08/03/18 09:39 ALT 104 U/L (7-52) H 08/03/18 09:39 Alkaline Phosphatase 148 U/L (34-104) H 08/03/18 09:39 B-Natriuretic Peptide 303 pg/mL (<=100) H 08/03/18 09:39 Total Protein 7.0 g/dL (6.4-8.9) 08/03/18 09:39 Albumin 3.1 g/dL (3.2-5.2) L 08/03/18 09:39 Globulin 3.9 g/dL (2-4) 08/03/18 09:39 Albumin/Globulin Ratio 0.8 (1-3) L 08/03/18 09:39 08/03/18 08/03/18 08/03/18 09:39 13:07 16:17 Troponin I 0.28 H* 0.25 H* 0.21 H* Assessment/Plan I personally saw and examined the patient in the presence of his son and daughter in law. The patient states he has been walking, has not had to stop in the halls here, but feels he is not at his baseline, that he has not improved. He also c/o a raw behind, he wants a shower and feels this limits his ability to ambulate. The patient has fine basilar crackles, soft but late peaking SM heard across the precordium. No HSM, no LE edema. Nuclear stress 08/05/18 shows EF 26%, fixed inferior lateral apical defect c/w old DC. Echo 07/26/18 showed EF 30%, mild to moderate , PA pressure 63 mmHg, I reviewed personally, on 2D imaging RCC and LCC open, c/w mild/moderate not severe. Overnight oximetry: O2 in the 80's. The patient was admitted in late June with SOB, septic and with low EF/high PA pressures, now returns with CHF and evidence of large DC and no interventional options. and CKD facotrs. I agree with medical management as above, diet education wrt salt will be important. It will be difficult to achieve compensation and I expect it will take some time. If improves could trial entresto (out patient). Not a candidate for AVR now. ICD candidate and reviewed Zoll with pt family in follow up to Katey Topete above. OK to shower off monitor. Will order dietary consult.
[2018-08-07] MEDS ORDERED: diPHENhydraMINE PO* 50 MG PO PRN (11:57)
[2018-08-07] MEDS: Nystatin TOP POWDER* 15 GM BTL TOPICAL SCH ×2 (13:08→21:44)
[2018-08-07] MEDS ORDERED: traMADol TAB* 50 MG PO PRN (16:53)
[2018-08-07] MEDS ORDERED: NS 0.9% 250 ML* 250 ML IV ONE (20:07)
--- NOTE | 2018-08-07 20:13 | PN ---
Subjective Date of Service: 08/07/18 Interval History: Pt seen and examined. Meds and labs reviewed. CC: N/A ROS: Denied SHANKS/dizziness, F/C, N/V, CP, SOB, increased cough, sputum production , abd pain, diarrhea, constipation, dysuria, myalgias, arthralgias, throat pain , and new skin lesions. The rest of the 14 point ROS are unremarkable. PHYSICAL EXAM: GEN APPEARANCE: Awake, not in acute distress HEENT: NC/AT, PERRLA, moist oral mucosa, (-) throat erythema NECK: Soft, supple, (-) cervical LAD, (-)JVD HEART: S1S2 WNL, RRR, No MRG CHEST: CTA, BL, GAE, No W/R/R ABD: Soft, ND/NT, NABS 4x Q EXT: No C/C/E SKIN: Warm to touch PSYCH: No active psychosis, hallucinations, depression, SI/HI Family History: Unchanged from Admission Social History: Unchanged from Admission Past Medical History: Unchanged from Admission Objective Active Medications: Acetaminophen (Tylenol Tab*) 650 mg PO Q4H PRN PRN Reason: FEVER/PAIN Albuterol (Ventolin 2.5 Mg/3 Ml Neb.Юлия*) 2.5 mg INH Q4H PRN PRN Reason: SOB/WHEEZING Aspirin (Aspirin 81 Mg Chew Tab*) 81 mg PO DAILY [facility] Atorvastatin Calcium (Lipitor*) 40 mg PO 2100 [facility] Carvedilol (Coreg Tab*) 6.25 mg PO BID [facility] Cyanocobalamin (Vitamin B12 Tab*) 1,000 mcg PO DAILY [facility] Last Admin: 08/07/18 07:51 Dose: 1,000 mcg Dextrose (D50w Syringe 50 Ml*) 12.5 gm IV PUSH .FOR FS < 60 - SS PRN PRN Reason: FS < 60 Folic Acid (Folvite Tab*) 1 mg PO DAILY [facility] Last Admin: 08/07/18 07:51 Dose: 1 mg Furosemide (Lasix Tab*) 20 mg PO DAILY [facility] Last Admin: 08/07/18 07:51 Dose: 20 mg Guaifenesin (Robitussin*) 5 ml PO Q4H PRN PRN Reason: COUGH Heparin Sodium (Porcine) (Heparin Vial(*)) 5,000 units SUBCUT Q8HR [facility] Last Admin: 08/07/18 13:08 Dose: 5,000 units Sodium Chloride (Ns 0.9% 250 Ml*) 250 mls @ 0 mls/hr IV ONCE ONE Stop: 08/07/18 20:08 Insulin Human Lispro (Humalog*) 0 units SUBCUT ACHS [facility]; Protocol Last Admin: 08/07/18 17:11 Dose: 4 unit Lisinopril (Prinivil Tab*) 5 mg PO DAILY [facility] Last Admin: 08/07/18 07:51 Dose: 5 mg Nystatin (Nystatin Top Powder*) 1 applic TOPICAL TID [facility] Last Admin: 08/07/18 13:08 Dose: 1 applic Ondansetron HCl (Zofran Inj*) 4 mg IV Q6H PRN PRN Reason: NAUSEA/VOMITING Tamsulosin HCl (Flomax Cap*) 0.8 mg PO DAILY [facility] Last Admin: 08/07/18 07:51 Dose: 0.8 mg Tramadol HCl (Ultram*) 50 mg PO Q6H PRN PRN Reason: Breakthrough pain Last Admin: 08/07/18 17:12 Dose: 50 mg Vital Signs - 8 hr 08/07/18 08/07/18 08/07/18 12:21 15:06 15:16 Temperature 98.1 F Pulse Rate 39 Respiratory 18 26 16 Rate Blood Pressure 101/46 (mmHg) O2 Sat by Pulse 97 Oximetry 08/07/18 08/07/18 08/07/18 15:20 17:12 18:43 Temperature 98.5 F Pulse Rate 86 84 Respiratory 16 18 Rate Blood Pressure 64/26 (mmHg) O2 Sat by Pulse 93 Oximetry Oxygen Devices in Use Now: None, Nasal Cannula Result Diagrams: 08/06/18 05:42 08/06/18 05:42 Additional Lab and Data: Microbiology and Other Data: Microbiology 08/03/18 13:20 Stool Gross Appearance - Final Stool Assess/Plan/Problems-Billing Assessment: Mr. Whalen is a 88 yo male with PMH significant for systolic HF, CKD, CAD, DM2, HTN, HLD, BPH, and recent PNA who presented to the emergency room with shortness of breath with exertion, GINNY, elevated troponin and lactic acidosis. - Patient Problems (1) Dyspnea Current Visit: Yes Status: Acute Code(s): R06.00 - DYSPNEA, UNSPECIFIED SNOMED Code(s): 461493804 Comment: - Continues to improve - Appreciate Cardiology f/U - Likely due to CHF exacerbation given pulmonary edema on CXR -Continue Lasix -High-risk stress test---d/w Dr. Parekh and given fixed defect, no intervention at this time, i.e., PCI (2) GINNY (acute kidney injury) Current Visit: Yes Status: Acute Code(s): N17.9 - ACUTE KIDNEY FAILURE, UNSPECIFIED SNOMED Code(s): 57136597 Comment: - Creatinine improving, unclear baseline as no labs prior to 07/26 - Likely due to CHF exacerbation (3) Elevated troponin Current Visit: Yes Status: Acute Code(s): R74.8 - ABNORMAL LEVELS OF OTHER SERUM ENZYMES SNOMED Code(s): 616104855 Comment: - Denies chest pain - Troponin has been trending down since admission; 0.28, 0.25, 0.21 - Echo on 07/26 with multiple regional wall motion abnormalities and EF 30% - Suspect demand ischemia in the setting of recent PNA and CHF - Further recommendations based on Cardiology consult (4) Diarrhea Current Visit: Yes Status: Acute Code(s): R19.7 - DIARRHEA, UNSPECIFIED SNOMED Code(s): 41545003 Comment: - Suspect secondary to recent ABX use - Stool culture pending (5) Systolic heart failure Current Visit: Yes Status: Acute Code(s): I50.20 - UNSPECIFIED SYSTOLIC ( CONGESTIVE) HEART FAILURE SNOMED Code(s): 808554849 Comment: - Echo on 07/26, EF 30%--given this pt is candidate for ICD and being set-up by cards for Life vest prior to D/C - Cardiology consult, pending - Continue low dose Lasix and Coreg - Daily weights and strict I+O's (6) Pulmonary HTN Current Visit: Yes Status: Acute Code(s): I27.20 - PULMONARY HYPERTENSION, UNSPECIFIED SNOMED Code(s): 29513459 Comment: - Severe pulmonary HTN on echo - Pulmonology consult, pending (7) HTN (hypertension) Current Visit: Yes Status: Acute Code(s): I10 - ESSENTIAL (PRIMARY) HYPERTENSION SNOMED Code(s): 42082760 Comment: - SBP 100-120's - Continue Coreg - Hold Lisinopril in the setting of GINNY (8) Diabetes mellitus Current Visit: Yes Status: Chronic Code(s): E11.9 - TYPE 2 DIABETES MELLITUS WITHOUT COMPLICATIONS SNOMED Code(s): 83667288 Comment: - Glucose 180-310's - HgA1C was 7.1% on 07/28 - Continue Lispro sliding scale - Hold glipizide (9) HLD (hyperlipidemia) Current Visit: No Status: Chronic Code(s): E78.5 - HYPERLIPIDEMIA, UNSPECIFIED SNOMED Code(s): 77059193 Comment: - Continue atorvastatin (10) DVT prophylaxis Current Visit: Yes Status: Acute Code(s): DGL0703 - SNOMED Code(s): 942848374 Comment: - HSQ Status and Disposition: -Possible D/C in AM -For ambulatory sats in AM---pt mentions hes on 1L NC at home and will ambulate at this level - not yet candidate for AVR
--- NOTE | 2018-08-07 20:25 | PN ---
Hospitalist Progress Note Date of Service: 08/07/18 Called for low bp. NOte today patient received kelly, beta and lasix this am. Touched base with cardiology. Plan to stop coreg and kelly, add toprol xl in am per Cards. Also given 250cc bolus. will follow closely.
[2018-08-07] MEDS ORDERED: Atorvastatin* 40 MG TAB PO SCH (21:00)
[2018-08-07] MEDS ORDERED: Carvedilol TAB* 6.25 MG PO SCH (21:00)
[2018-08-08] MEDS ORDERED: NS 0.9% 250 ML* 250 ML IV ONE (00:48)
[2018-08-08] MEDS: Heparin VIAL(*) 5000 UNITS/ML VIAL (FIVE THOUSAND) SUBCUT SCH ×2 (05:37→13:06)
[2018-08-08] MEDS: Folic Acid TAB* 1 MG PO SCH (08:30)
[2018-08-08] MEDS: Furosemide TAB* 20 MG PO SCH (08:30)
[2018-08-08] MEDS: Insulin LISPRO* 1 UNITS UNIT SUBCUT SCH ×2 (08:30→12:04)
[2018-08-08] MEDS: Nystatin TOP POWDER* 15 GM BTL TOPICAL SCH ×2 (08:30→13:06)
[2018-08-08] MEDS: Tamsulosin CAP* 0.4 MG PO SCH (08:30)
[2018-08-08] MEDS: Cyanocobalamin TAB* 500 MCG PO SCH (08:30)
[2018-08-08] MEDS ORDERED: Metoprolol Succinate XL TAB* 25 MG PO SCH (09:00)
[2018-08-08] MEDS ORDERED: Aspirin 81 mg CHEW TAB* 81 MG TAB.CHEW PO SCH (09:00)
--- NOTE | 2018-08-08 09:02 | PN ---
Subjective Date of Service: 08/08/18 - ICM, CKD Interval History: Spoke with RN Meenakshi who states patient desaturated last night and o2 was applied. Dr. Anglin had ordered overnight oximetry. Mr. Whalen reports his his buttox is raw and hurting as is his testicles. 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 however, the skin is more irritated david usual. He reports good urinary output, denies chest pain, sob, tobar, palpitations, sensation of heart racing. BP has been low but does not appear to be symptomatic. Medications Active Medications: Acetaminophen (Tylenol Tab*) 650 mg PO Q4H PRN PRN Reason: FEVER/PAIN Albuterol (Ventolin 2.5 Mg/3 Ml Neb.Юлия*) 2.5 mg INH Q4H PRN PRN Reason: SOB/WHEEZING Aspirin (Aspirin 81 Mg Chew Tab*) 81 mg PO DAILY [facility] Last Admin: 08/08/18 08:30 Dose: 81 mg Atorvastatin Calcium (Lipitor*) 40 mg PO 2100 [facility] Last Admin: 08/07/18 21:44 Dose: 40 mg Cyanocobalamin (Vitamin B12 Tab*) 1,000 mcg PO DAILY [facility] Last Admin: 08/08/18 08:30 Dose: 1,000 mcg Dextrose (D50w Syringe 50 Ml*) 12.5 gm IV PUSH .FOR FS < 60 - SS PRN PRN Reason: FS < 60 Folic Acid (Folvite Tab*) 1 mg PO DAILY [facility] Last Admin: 08/08/18 08:30 Dose: 1 mg Furosemide (Lasix Tab*) 20 mg PO DAILY [facility] Last Admin: 08/08/18 08:30 Dose: 20 mg Guaifenesin (Robitussin*) 5 ml PO Q4H PRN PRN Reason: COUGH Heparin Sodium (Porcine) (Heparin Vial(*)) 5,000 units SUBCUT Q8HR [facility] Last Admin: 08/08/18 05:37 Dose: 5,000 units Insulin Human Lispro (Humalog*) 0 units SUBCUT [facility]; Protocol Last Admin: 08/08/18 08:30 Dose: 2 unit Metoprolol Succinate (Toprol Xl Tab*) 25 mg PO DAILY [facility] Last Admin: 08/08/18 08:30 Dose: 25 mg Nystatin (Nystatin Top Powder*) 1 applic TOPICAL TID [facility] Last Admin: 08/08/18 08:30 Dose: 1 applic Ondansetron HCl (Zofran Inj*) 4 mg IV Q6H PRN PRN Reason: NAUSEA/VOMITING Tamsulosin HCl (Flomax Cap*) 0.8 mg PO DAILY [facility] Last Admin: 08/08/18 08:30 Dose: 0.8 mg Tramadol HCl (Ultram*) 50 mg PO Q6H PRN PRN Reason: Breakthrough pain Last Admin: 08/07/18 17:12 Dose: 50 mg Objective Vital Signs: Temp Pulse Resp BP Pulse Ox 97.8 F 48 18 102/46 98 08/08/18 07:32 08/08/18 07:32 08/08/18 07:32 08/08/18 08:22 08/08/18 07:32 Oxygen Devices in Use Now: None, Nasal Cannula Appearance: NAD, A+O x3 cooperative with exam Eyes: No Scleral Icterus, PERRLA Ears/Nose/Mouth/Throat: NL Teeth, Lips, Gums, Clear Oropharnyx, Mucous Membranes Moist Neck: NL Appearance and Movements; NL JVP, Trachea Midline, No Thyroid Enlargement, Masses Respiratory: Clear to Auscultation - however breath sound are diminished throughout., - Cardiovascular: NL Sounds; No Murmurs; No JVD, - - Normal S1, S2 RRR, Grade 3/6 aortic valve murmur, Grade 3/5 diastolic mitral murmur, no rub or gallop Abdominal: NL Sounds; No Tenderness; No Distention Lymphatic: No Cervical Adenopathy Skin: No Rash or Ulcers Neurological: Alert and Oriented x 3 Lines/Tubes/Other Access: Clean, Dry and Intact Peripheral IV Laboratory Results: 08/06/18 05:42 08/06/18 05:42 Total Bilirubin 0.40 mg/dL (0.2-1.0) 08/03/18 09:39 AST 32 U/L (13-39) 08/03/18 09:39 ALT 104 U/L (7-52) H 08/03/18 09:39 Alkaline Phosphatase 148 U/L (34-104) H 08/03/18 09:39 B-Natriuretic Peptide 303 pg/mL (<=100) H 08/03/18 09:39 Total Protein 7.0 g/dL (6.4-8.9) 08/03/18 09:39 Albumin 3.1 g/dL (3.2-5.2) L 08/03/18 09:39 Globulin 3.9 g/dL (2-4) 08/03/18 09:39 Albumin/Globulin Ratio 0.8 (1-3) L 08/03/18 09:39 08/03/18 08/03/18 08/03/18 09:39 13:07 16:17 Troponin I 0.28 H* 0.25 H* 0.21 H* Laboratory Results - last 24 hr 08/07/18 08/07/18 08/07/18 11:12 15:08 16:28 POC Glucose (mg/dL) 294 H 222 H 224 H 08/07/18 08/08/18 20:45 07:20 POC Glucose (mg/dL) 240 H 170 H Diagnostic Imaging: Lexiscan Stress Test 08/06/2018; LVEF 26% with fixed defect involving inferior lateral ventricular wall extending to the apex of the heart. ecg portion was non diagnostic. Telemetry; Sinus arrythmia with frequent PACs( HR 90's). EKG Data: none to review for today. Assessment/Plan #1 SHF LVEF 30% likely ICM. NYHA class 2-3 stage C. Appears compensated today. On Toprol XL 25mg/day. SBP is 98-105 he is not symptomatic. Life vest is to be applied at 1pm today. Will update BMP given h/o CKD and diuretic therapy. given BP unable to uptitrate Bblocker or add ACEI. #2 CAD; h/o multivessle PCI in 2001, ST this admit revealed fixed anterior defect. On ASA 81/day, Bblocker and statin therapy. Will need repeat FLP and LFT in 6 weeks given adjustment to Lipitor therapy. He continues to deny chest pain. #3 h/o CKD; will update BMP and follow #4 Mild to moderate ; DI .50 he is stable and asymptomatic will follow outpatient. #5 Hypoxia on overnight oximetry; Dr. Anglin following. #6 c/o skin breakdown; will consult wound care #7 Disposition pending course. Will await BMP. Lifevest to be applied at 1pm today. He will need FLP/LFT in 6 weeks, repeat BMP in 7-10 days given CKD. F/u with Dr. Parekh in 2-3 weeks for optimization of CHF medications. Attending: Hiram Sanchez
[2018-08-08 10:29] LABS: EGFR Non-African American 31.2 (>60)
[2018-08-08 11:21] VITALS: BP 100/45
--- NOTE | 2018-08-08 13:06 | CONS ---
FOLLOWUP CARDIOLOGY NOTE: DATE OF CONSULT: 08/08/18 PATIENT OF: Dr. Nolen and Dr. Chaves. The patient was seen with Katey Blevins today and plan was reviewed and labs reviewed. See her note of 08.08.18, (I was unable to cosign it due to being closed electronically). The patient has severe LV dysfunction, congestive heart failure and the plan is for continued medical therapy, titration of his medical regimen as tolerated as an outpatient. In addition to the LV dysfunction, he has renal insufficiency and low normal blood pressures which limit our medical options. His followup BMP today revealed a mild increase in his creatinine to 2, his potassium was 4.7. Plan is to continue medical management. He is to follow up with Dr. Parekh and Katey as an outpatient for further titration of his medications. He has a LifeVest in place at this point. His nuclear revealed a fixed inferolateral defect with severe LV dysfunction, EF of 26%; it was decided to continue medical management. [id number]/[facility] #: [id number] [facility]ITALElizabet
--- NOTE | 2018-08-08 18:21 | DS ---
CC: Dr. Berta Alegria; Dr. Cristopher Ford; Dr. Gillian Anglin; Dr. Franki Parekh; Dr. Kendall Pastrana * DISCHARGE SUMMARY: DATE OF ADMISSION: DATE OF DISCHARGE: 08/08/18 DISCHARGE DIAGNOSES: As follows: 1. Congestive heart failure exacerbation, systolic, improved. 2. Acute on chronic renal insufficiency, Lasix and lisinopril withheld. Lasix being withheld for today and tomorrow. We will defer lisinopril re- prescription with either pyrometallurgical engineer and/or PCP. 3. Mildly elevated troponins, likely secondary to demand ischemia due to above. 4. Severe pulmonary hypertension, history of. 5. Hypertension. DISCHARGE MEDICATIONS: As follows: 1. Aspirin 81 mg p.o. daily. 2. Cyanocobalamin 1000 mcg p.o. daily. 3. Folic acid 1 mg p.o. daily. 4. Guaifenesin 5 mL p.o. q.4 p.r.n. 5. Metoprolol succinate 25 mg p.o. daily. 6. Tamsulosin 0.8 mg p.o. daily. 7. Glipizide 5 mg p.o. q.a.m. 8. Guaifenesin 400 mg p.o. q.i.d. 9. Nitroglycerin 0.4 mg sublingual q.5 minutes p.r.n. 10. Nystatin topical powder 1 application topically t.i.d. for at least 14 days , especially in the groin area. 11. Pravastatin 40 mg p.o. q.h.s. 12. Tramadol 50 mg p.o. q.6 p.r.n. HISTORY OF PRESENT ILLNESS/HOSPITAL COURSE: The patient is an 88-year-old gentleman, who presented to the ER on 08/03/18 due to shortness of breath and weakness along with fatigue. He was subsequently diagnosed with systolic CHF exacerbation and was found to have acute on chronic renal insufficiency likely due to above. He also has had some mildly elevated troponins and hence the patient underwent a stress test, which unfortunately suggests a high risk stress test; however, upon review by Dr. Parekh of these images, he felt that the patient has a fixed defect and hence currently does not require PCI. Given his EF is 30%, he is currently under the process of having an ICD placed as an outpatient and in the meantime the patient has been set up for a LifeVest prior to his discharge. During his hospitalization course , he also complained of some erythematous rashes in his groin and is being followed by W[facility] Care. He has been prescribed nystatin t.i.d. topically and to keep the area dry. The patient had been advised to follow up and/or call his PCP within 3 days post discharge. He was advised that given his acute on chronic renal insufficiency, his diuretics and MARLEN inhibitors have been held. It was clarified to the patient that both of them will need to be held for today and tomorrow, then the patient can restart Lasix; however, he is to discuss with Dr. Parekh and/or his PCP when he can restart his lisinopril. He was advised to make sure to adhere to a low-salt diet, no more than 1.5 g per day of sodium and to read all food labels and research average sodium contents of food that do not have specific labels to estimate the amount that he is taking. He was advised to follow up with Dr. Parekh within 7 to 10 days of this discharge and he was advised to call my office to make and/or confirm an appointment. He was advised that if his symptoms resume or develop new ones or feel unwell for any reason, to call his PCP first. If his PCP cannot entertain him due to scheduling issues alone, to call [facility] instead if the issue is not emergent. He was advised to call my office regarding any questions, concerns, or further clarifications regarding his discharge plans and/or prescriptions and to take his medications as prescribed. REVIEW OF SYSTEMS: The patient denied any current headaches, dizziness, fevers , chills, nausea, vomiting, chest pain, shortness of breath, increased coughing or sputum production, abdominal pain, diarrhea, constipation, pain and/or increased frequency on urination, myalgias, arthralgias, throat pain, or new skin lesions. The rest of the 14-point review of systems is otherwise unremarkable. PHYSICAL EXAMINATION: Reveals the most recent vital signs of record: Blood pressure of 100/45 from 102/46 and 100/34, 97.4 degrees Fahrenheit, 84 beats per minute heart rate, 16 per minute respiratory rate, saturating on room air. General Appearance: The patient is awake, alert, and oriented x3, not in acute distress. Chest: Clear to auscultation bilaterally. Good air entry. No wheezes, rales, or rhonchi. Abdomen is soft, nondistended, nontender. Normoactive bowel sounds x4 quadrants. Extremities: No cyanosis, clubbing, or edema. Psychiatric: No active psychosis, depression, suicidal or homicidal ideation. Skin is warm to touch. TIME SPENT: The total time spent evaluating the patient, reviewing pertinent data, and appropriate documentation is 50 minutes. [id number]/[facility] #: [id number] [facility]
== END 2018-08-08 14:50 | disposition home health service (06) | DRG 291 ==
LOC: ED 09:04 → MEDTELE 12:45 → OBSVTOIN 08-04 16:00
PROVIDERS: ADMIT Hospitalist; ATTEND Student in an Organized Health Care Education/Training Program
PROC: 4A12XM4 Monitoring of Cardiac Stress, External Approach (ICD-10-PCS; principal; 2018-08-06)
DX: I13.0 Hypertensive heart and chronic kidney disease with heart failure and stage 1 through stage 4 chronic kidney disease, or unspecified chronic kidney disease (principal); I50.23 Acute on chronic systolic (congestive) heart failure; N17.8 Other acute kidney failure; E87.2 Acidosis; I24.8 Other forms of acute ischemic heart disease; I25.10 Atherosclerotic heart disease of native coronary artery without angina pectoris; E78.5 Hyperlipidemia, unspecified; I50.9 Heart failure, unspecified; N40.0 Benign prostatic hyperplasia without lower urinary tract symptoms; R40.2362 Coma scale, best motor response, obeys commands, at arrival to emergency department; R40.2142 Coma scale, eyes open, spontaneous, at arrival to emergency department; R40.2252 Coma scale, best verbal response, oriented, at arrival to emergency department; E86.0 Dehydration; R19.7 Diarrhea, unspecified; Z66 Do not resuscitate; N18.9 Chronic kidney disease, unspecified; E11.22 Type 2 diabetes mellitus with diabetic chronic kidney disease; I27.20 Pulmonary hypertension, unspecified; I49.3 Ventricular premature depolarization; I35.0 Nonrheumatic aortic (valve) stenosis; R09.02 Hypoxemia; Z79.82 Long term (current) use of aspirin; Z87.891 Personal history of nicotine dependence; Z95.5 Presence of coronary angioplasty implant and graft; Z80.9 Family history of malignant neoplasm, unspecified; Z87.01 Personal history of pneumonia (recurrent); Z72.89 Other problems related to lifestyle; Z79.84 Long term (current) use of oral hypoglycemic drugs; R21 Rash and other nonspecific skin eruption
CPT/HCPCS: 36415; 71046; 78452; 80048; 80053; 81003; 81015; 83605; 83880; 84484; 85025; 86140; 87045; 87046; 87077; 87086; 87106; 87186; 87899; 93005; 93017; 94762; 99284; A9270-GY; A9502; G0378; G8978-GP-CI; G8979-GP-CI; G8980-GP-CI; G8987-GO-CI; G8988-GO-CI; G8989-GO-CI; J0280; J1644; J2785

== ENCOUNTER 2020-04-08 16:52 | Inpatient (IN) ==
[2020-04-08] MEDS ORDERED: NS 0.9% 1000 ml BAG 1,000 ML IV ONE ×2 (18:11→19:06)
[2020-04-08 18:31] LABS: ABS Lymphocytes 1.4 10^3/ul (1.0-4.8); ABS Monocytes 1.2 10^3/ul (0-0.8); ABS Neutrophils 9.1 10^3/ul (1.5-7.7); Eosinophil % 0.2 %; Hematocrit 37 % (42-52); Hemoglobin 12.6 g/dL (14.0-18.0); Lymphocyte % 12.2 %; Mean Corpuscular HGB Conc 34 g/dL (31-36); Mean Corpuscular Hemoglobin 32 pg (27-31); Mean Corpuscular Volume 93 fL (80-94); Mean Platelet Volume 7.1 fL (7.4-10.4); Platelet Count 262 10^3/uL (150-450); Red Blood Count 3.99 10^6 /uL (4.18-5.48); Red Cell Distribution Width 13 % (10-15); White Blood Count 11.8 10^3/uL (3.5-10.8)
[2020-04-08 18:49] LABS: ALT 15 U/L (7-52); AST 16 U/L (13-39); Alkaline Phosphatase 92 U/L (34-104); Anion Gap 7 mmol/L (2-11); BUN/Creatinine Ratio 14.1 (8-20); Blood Urea Nitrogen 24 mg/dL (6-24); C Reactive Protein 219.96 mg/L (<8.01); CO2 Carbon Dioxide 28 mmol/L (22-32); Chloride 101 mmol/L (101-111); EGFR African American 46.3 (>60); EGFR Non-African American 38.2 (>60); Globulin 4.1 g/dL (2-4); Glucose 173 mg/dL (70-100); Potassium 4.1 mmol/L (3.5-5.0); Sodium 136 mmol/L (135-145); Total Protein 8.1 g/dL (6.4-8.9)
[2020-04-08 18:53] LABS: Troponin I 0.49 ng/mL (<0.03)
[2020-04-08] MEDS ORDERED: cefTRIAXone 1 gm/50 mL NS BAG 1 GM/50 ML BAG IV ONE (20:52)
[2020-04-08 22:10] LABS: Troponin I 0.61 ng/mL (<0.03)
[2020-04-08] MEDS ORDERED: CMCS: Pravastatin 20 mg TAB (NF) PO SCH (23:00)
[2020-04-09 00:44] LABS: TSH Ultra Thyroid Stim Horm 3.12 mcIU/mL (0.34-5.60)
[2020-04-09 00:47] LABS: Troponin I 0.39 ng/mL (<0.03)
[2020-04-09] MEDS ORDERED: Azithromycin 500 mg/250 ml NS 500 MG/250 ML BAG IVPB ONE (01:53)
[2020-04-09 03:02] LABS: Urine Appearance Cloudy; Urine Bilirubin Negative (Negative); Urine Blood Negative (Negative); Urine Color Yellow; Urine Glucose 1+(50 mg/dL) (Negative); Urine Ketones Negative (Negative); Urine Nitrite Negative (Negative); Urine Protein 2+(100 mg/dL) (Negative); Urine Specific Gravity 1.021 (1.010-1.030); Urine Urobilinogen Negative (Negative)
[2020-04-09 03:03] LABS: Urine Bacteria Absent (Absent); Urine Red Blood Cell Trace(0-2/hpf) (Absent); Urine Squamous Epithelial Cell Present (Absent); Urine White Blood Cell 1+(6-10/hpf) (Absent)
[2020-04-09] MEDS ORDERED: Cholecalciferol (VIT D3) 1,000 unit TAB PO SCH (09:00)
[2020-04-09] MEDS ORDERED: Aspirin EC 81 mg TAB.EC (enteric coated) PO SCH (09:00)
[2020-04-09] MEDS ORDERED: NFT: Multivitamins/Mins AREDS2 (NF) CAP PO SCH (09:00)
[2020-04-09 13:41] VITALS: BP 93/44
[2020-04-09] MEDS ORDERED: cefTRIAXone 1 gm/50 mL NS BAG 1 GM/50 ML BAG IVPB SCH (21:00)
[2020-04-10] MEDS ORDERED: Multivitamins/Minerals TAB PO SCH (09:00)
== END 2020-04-09 16:30 | disposition home or self-care (01) | DRG 872 ==
LOC: MED 16:52 → ED 16:52 → MED 23:04
PROVIDERS: ADMIT Student in an Organized Health Care Education/Training Program; ATTEND Student in an Organized Health Care Education/Training Program